=== PATIENT | male | born 1970 | race African-American/Black ===

== ENCOUNTER 2016-06-13 17:29 | Inpatient (IN) | payer SELFPAY ==
[~2016-06-13] VITALS: Ht 177.8 cm; Wt 67.6 kg
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
[2016-06-13] MEDS ORDERED: VANCOMYCIN 1GM IVPB FOR OMNI 250 ML IV ONE (18:15)
[2016-06-13] MEDS ORDERED: MORPHINE SULFATE 10 MG/ML VIAL. IV ONE ×2 (18:15→20:00)
[2016-06-13] MEDS ORDERED: IV NORMAL SALINE 500ML BAG 500 ML IV ONE (18:15)
[2016-06-13] MEDS ORDERED: DIPHTH,PERTUSS(ACELL),TET TOX 0.5 ML DISP.SYRIN. VAX IM ONE (18:30)
[2016-06-13 18:38] LABS: BASO % 0 % (0-3); EOS % 1 % (0-3); HEMATOCRIT 41.5 % (39.0-53.0); LYMPH # 1.7 x10^3/uL (1.0-4.8); LYMPH % 26 % (24-48); MEAN CORPUSCULAR HEMOGLOBIN 28 pg (25-35); MEAN CORPUSCULAR HGB CONC 34 g/dL (31-37); MEAN CORPUSCULAR VOLUME 84 fL (79-100); MONO % 8 % (0-9); NEUT % 65 % (31-73); PLATELET COUNT 231 x10^3/uL (140-400); RED BLOOD COUNT 4.94 x10^6/uL (4.30-5.70); RED CELL DISTRIBUTION WIDTH 12.5 % (11.5-14.5); WHITE BLOOD COUNT 6.6 x10^3/uL (4.0-11.0)
[2016-06-13 18:53] LABS: CALCIUM 9.7 mg/dL (8.5-10.1); CREATININE 1.2 mg/dL (0.7-1.3); GFR 65.8
[2016-06-13 19:04] LABS: ALBUMIN 3.6 g/dL (3.4-5.0); ALBUMIN/GLOBULIN RATIO 0.7 (1.0-1.7); TOTAL BILIRUBIN 0.4 mg/dL (0.2-1.0); TOTAL PROTEIN 8.7 g/dL (6.4-8.2)
[2016-06-13] MEDS ORDERED: MORPHINE SULFATE 4 MG/ML DISP.SYRIN. IV PRN (20:00)
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
[2016-06-13] MEDS ORDERED: ACETAMINOPHEN 325 MG TABLET. PO PRN (20:30)
[2016-06-13] MEDS ORDERED: HYDROMORPHONE 2 MG/ML VIAL. IV PRN (20:30)
[2016-06-13] MEDS ORDERED: ONDANSETRON PF 4 MG/2 ML VIAL. IV PRN (20:30)
[2016-06-13] MEDS: VANCOMYCIN PER PHARMACY MC PRN (20:46)
[2016-06-13 21:15] VITALS: BP 127/79
[2016-06-13 23:00] VITALS: BP 134/75
[2016-06-14 03:00] VITALS: BP 99/71
[2016-06-14] MEDS: IV NORMAL SALINE 1000ML BAG 1,000 ML IV SCH ×2 (04:30→05:49)
[2016-06-14 05:10] LABS: BASO % 1 % (0-3); EOS % 3 % (0-3); HEMOGLOBIN 13.8 g/dL (13.0-17.5); LYMPH # 2.1 x10^3/uL (1.0-4.8); LYMPH % 32 % (24-48); MEAN CORPUSCULAR HEMOGLOBIN 28 pg (25-35); MEAN CORPUSCULAR HGB CONC 34 g/dL (31-37); MEAN CORPUSCULAR VOLUME 84 fL (79-100); MONO % 8 % (0-9); NEUT % 57 % (31-73); PLATELET COUNT 243 x10^3/uL (140-400); RED BLOOD COUNT 4.86 x10^6/uL (4.30-5.70); RED CELL DISTRIBUTION WIDTH 12.4 % (11.5-14.5); WHITE BLOOD COUNT 6.5 x10^3/uL (4.0-11.0)
[2016-06-14 05:33] LABS: CALCIUM 9.4 mg/dL (8.5-10.1); CREATININE 1.1 mg/dL (0.7-1.3); POTASSIUM 4.7 mmol/L (3.5-5.1)
[2016-06-14] MEDS: VANCOMYCIN 1 GM in IV NORMAL SALINE 250ML 250 ML IV SCH ×2 (05:49→20:15)
[2016-06-14 07:00] VITALS: BP 111/81
--- NOTE | 2016-06-14 08:07 | RAD ---
Right thumb, 3 views, 06/13/2016: History: Thumb infection No fracture or destructive bony lesion is seen. There is minimal spurring at the IP and MCP joints. Incidental note is made of a radiopaque foreign body in the index finger. IMPRESSION: No acute bony abnormality is detected.
[2016-06-14 11:28] VITALS: BP 108/70
[2016-06-14] MEDS ORDERED: HYDROMORPHONE 2 MG/ML VIAL. IV PRN ×2 (13:00→16:45)
[2016-06-14] MEDS ORDERED: KETOROLAC TROMETHAMINE 30 MG/ML SYRINGE. IV ONE ×2 (13:00→13:30)
[2016-06-14] MEDS ORDERED: IV NORMAL SALINE 1000ML BAG 1,000 ML IV SCH (13:17)
--- NOTE | 2016-06-14 13:22 | PDOC ---
PROGRESS NOTES Chief Complaint Chief Complaint 1. right thumb cellulitis w/ tenosynovitis 2. possible bed bug infection 3. Puritis, 4. marked pain, 02/01 plan: History of Present Illness History of Present Illness cont NPO iV fluid toradol, IV mrophine, ortho added IV dilaudid surg today 5pm Vitals Vitals Vital Signs Date Time Temp Pulse Resp B/P Pulse Ox O2 Delivery O2 Flow Rate FiO2 06/14/16 11:28 97.5 78 108/70 97 Room Air 97.5 06/14/16 07:00 20 Physical Exam General: Alert, Cooperative, severe distress Heart: Regular rate, Normal S2 Lungs: Wheezing Extremities: No cyanosis Skin: No rashes Labs LABS Laboratory Tests Test 06/13/16 18:30 06/14/16 04:35 White Blood Count 6.6x10^3/uL (4.0-11.0) 6.5x10^3/uL (4.0-11.0) Red Blood Count 4.94x10^6/uL (4.30-5.70) 4.86x10^6/uL (4.30-5.70) Hemoglobin 14.0g/dL (13.0-17.5) 13.8g/dL (13.0-17.5) Hematocrit 41.5% (39.0-53.0) 41.0% (39.0-53.0) Mean Corpuscular Volume 84fL (79-100) 84fL (79-100) Mean Corpuscular Hemoglobin 28pg (25-35) 28pg (25-35) Mean Corpuscular Hemoglobin Concent 34g/dL (31-37) 34g/dL (31-37) Red Cell Distribution Width 12.5% (11.5-14.5) 12.4% (11.5-14.5) Platelet Count 231x10^3/uL (140-400) 243x10^3/uL (140-400) Neutrophils (%) (Auto) 65% (31-73) 57% (31-73) Lymphocytes (%) (Auto) 26% (24-48) 32% (24-48) Monocytes (%) (Auto) 8% (0-9) 8% (0-9) Eosinophils (%) (Auto) 1% (0-3) 3% (0-3) Basophils (%) (Auto) 0% (0-3) 1% (0-3) Neutrophils # (Auto) 4.3x10^3uL (1.8-7.7) 3.7x10^3uL (1.8-7.7) Lymphocytes # (Auto) 1.7x10^3/uL (1.0-4.8) 2.1x10^3/uL (1.0-4.8) Monocytes # (Auto) 0.5x10^3/uL (0.0-1.1) 0.5x10^3/uL (0.0-1.1) Eosinophils # (Auto) 0.1x10^3/uL (0.0-0.7) 0.2x10^3/uL (0.0-0.7) Basophils # (Auto) 0.0x10^3/uL (0.0-0.2) 0.0x10^3/uL (0.0-0.2) Sodium Level 140mmol/L (136-145) 141mmol/L (136-145) Potassium Level 4.0mmol/L (3.5-5.1) 4.7mmol/L (3.5-5.1) Chloride Level 102mmol/L (98-107) 104mmol/L (98-107) Carbon Dioxide Level 29mmol/L (21-32) 27mmol/L (21-32) Anion Gap 9 (6-14) 10 (6-14) Blood Urea Nitrogen 14mg/dL (8-26) 16mg/dL (8-26) Creatinine 1.2mg/dL (0.7-1.3) 1.1mg/dL (0.7-1.3) Estimated GFR (Cockcroft-Gault) 65.8 88.0 BUN/Creatinine Ratio 12 (6-20) Glucose Level 135mg/dL (70-99) 92mg/dL (70-99) Calcium Level 9.7mg/dL (8.5-10.1) 9.4mg/dL (8.5-10.1) Total Bilirubin 0.4mg/dL (0.2-1.0) Aspartate Amino Transf (AST/SGOT) 23U/L (15-37) Alanine Aminotransferase (ALT/SGPT) 23U/L (16-63) Alkaline Phosphatase 104U/L (46-116) Total Protein 8.7g/dL (6.4-8.2) Albumin 3.6g/dL (3.4-5.0) Albumin/Globulin Ratio 0.7 (1.0-1.7) Assessment and Plan Assessmemt and Plan Problems Medical Problems: (1) Felon of finger Status: Acute (2) Tenosynovitis Status: Acute Problems: Comment Review of Relevant I have reviewed the following items steven (where applicable) has been applied. Labs Laboratory Tests Test 06/13/16 18:30 06/14/16 04:35 White Blood Count 6.6x10^3/uL (4.0-11.0) 6.5x10^3/uL (4.0-11.0) Red Blood Count 4.94x10^6/uL (4.30-5.70) 4.86x10^6/uL (4.30-5.70) Hemoglobin 14.0g/dL (13.0-17.5) 13.8g/dL (13.0-17.5) Hematocrit 41.5% (39.0-53.0) 41.0% (39.0-53.0) Mean Corpuscular Volume 84fL (79-100) 84fL (79-100) Mean Corpuscular Hemoglobin 28pg (25-35) 28pg (25-35) Mean Corpuscular Hemoglobin Concent 34g/dL (31-37) 34g/dL (31-37) Red Cell Distribution Width 12.5% (11.5-14.5) 12.4% (11.5-14.5) Platelet Count 231x10^3/uL (140-400) 243x10^3/uL (140-400) Neutrophils (%) (Auto) 65% (31-73) 57% (31-73) Lymphocytes (%) (Auto) 26% (24-48) 32% (24-48) Monocytes (%) (Auto) 8% (0-9) 8% (0-9) Eosinophils (%) (Auto) 1% (0-3) 3% (0-3) Basophils (%) (Auto) 0% (0-3) 1% (0-3) Neutrophils # (Auto) 4.3x10^3uL (1.8-7.7) 3.7x10^3uL (1.8-7.7) Lymphocytes # (Auto) 1.7x10^3/uL (1.0-4.8) 2.1x10^3/uL (1.0-4.8) Monocytes # (Auto) 0.5x10^3/uL (0.0-1.1) 0.5x10^3/uL (0.0-1.1) Eosinophils # (Auto) 0.1x10^3/uL (0.0-0.7) 0.2x10^3/uL (0.0-0.7) Basophils # (Auto) 0.0x10^3/uL (0.0-0.2) 0.0x10^3/uL (0.0-0.2) Sodium Level 140mmol/L (136-145) 141mmol/L (136-145) Potassium Level 4.0mmol/L (3.5-5.1) 4.7mmol/L (3.5-5.1) Chloride Level 102mmol/L (98-107) 104mmol/L (98-107) Carbon Dioxide Level 29mmol/L (21-32) 27mmol/L (21-32) Anion Gap 9 (6-14) 10 (6-14) Blood Urea Nitrogen 14mg/dL (8-26) 16mg/dL (8-26) Creatinine 1.2mg/dL (0.7-1.3) 1.1mg/dL (0.7-1.3) Estimated GFR (Cockcroft-Gault) 65.8 88.0 BUN/Creatinine Ratio 12 (6-20) Glucose Level 135mg/dL (70-99) 92mg/dL (70-99) Calcium Level 9.7mg/dL (8.5-10.1) 9.4mg/dL (8.5-10.1) Total Bilirubin 0.4mg/dL (0.2-1.0) Aspartate Amino Transf (AST/SGOT) 23U/L (15-37) Alanine Aminotransferase (ALT/SGPT) 23U/L (16-63) Alkaline Phosphatase 104U/L (46-116) Total Protein 8.7g/dL (6.4-8.2) Albumin 3.6g/dL (3.4-5.0) Albumin/Globulin Ratio 0.7 (1.0-1.7) Laboratory Tests Test 06/13/16 18:30 06/14/16 04:35 White Blood Count 6.6x10^3/uL (4.0-11.0) 6.5x10^3/uL (4.0-11.0) Red Blood Count 4.94x10^6/uL (4.30-5.70) 4.86x10^6/uL (4.30-5.70) Hemoglobin 14.0g/dL (13.0-17.5) 13.8g/dL (13.0-17.5) Hematocrit 41.5% (39.0-53.0) 41.0% (39.0-53.0) Mean Corpuscular Volume 84fL (79-100) 84fL (79-100) Mean Corpuscular Hemoglobin 28pg (25-35) 28pg (25-35) Mean Corpuscular Hemoglobin Concent 34g/dL (31-37) 34g/dL (31-37) Red Cell Distribution Width 12.5% (11.5-14.5) 12.4% (11.5-14.5) Platelet Count 231x10^3/uL (140-400) 243x10^3/uL (140-400) Neutrophils (%) (Auto) 65% (31-73) 57% (31-73) Lymphocytes (%) (Auto) 26% (24-48) 32% (24-48) Monocytes (%) (Auto) 8% (0-9) 8% (0-9) Eosinophils (%) (Auto) 1% (0-3) 3% (0-3) Basophils (%) (Auto) 0% (0-3) 1% (0-3) Neutrophils # (Auto) 4.3x10^3uL (1.8-7.7) 3.7x10^3uL (1.8-7.7) Lymphocytes # (Auto) 1.7x10^3/uL (1.0-4.8) 2.1x10^3/uL (1.0-4.8) Monocytes # (Auto) 0.5x10^3/uL (0.0-1.1) 0.5x10^3/uL (0.0-1.1) Eosinophils # (Auto) 0.1x10^3/uL (0.0-0.7) 0.2x10^3/uL (0.0-0.7) Basophils # (Auto) 0.0x10^3/uL (0.0-0.2) 0.0x10^3/uL (0.0-0.2) Sodium Level 140mmol/L (136-145) 141mmol/L (136-145) Potassium Level 4.0mmol/L (3.5-5.1) 4.7mmol/L (3.5-5.1) Chloride Level 102mmol/L (98-107) 104mmol/L (98-107) Carbon Dioxide Level 29mmol/L (21-32) 27mmol/L (21-32) Anion Gap 9 (6-14) 10 (6-14) Blood Urea Nitrogen 14mg/dL (8-26) 16mg/dL (8-26) Creatinine 1.2mg/dL (0.7-1.3) 1.1mg/dL (0.7-1.3) Estimated GFR (Cockcroft-Gault) 65.8 88.0 BUN/Creatinine Ratio 12 (6-20) Glucose Level 135mg/dL (70-99) 92mg/dL (70-99) Calcium Level 9.7mg/dL (8.5-10.1) 9.4mg/dL (8.5-10.1) Total Bilirubin 0.4mg/dL (0.2-1.0) Aspartate Amino Transf (AST/SGOT) 23U/L (15-37) Alanine Aminotransferase (ALT/SGPT) 23U/L (16-63) Alkaline Phosphatase 104U/L (46-116) Total Protein 8.7g/dL (6.4-8.2) Albumin 3.6g/dL (3.4-5.0) Albumin/Globulin Ratio 0.7 (1.0-1.7) Medications Current Medications Morphine Sulfate 5 mg 5 mg 1X ONCE IV Last administered on 06/13/16 18:34; Start 06/13/16 at 18:15; Stop 06/13/16 at 18:16; Status DC Sodium Chloride 500 ml @ 500 mls/hr 1X ONCE IV Last administered on 18:33; Start 06/13/16 at 18:15; Stop 06/13/16 at 19:14; Status DC Vancomycin HCl 250 ml @ 250 mls/hr 1X ONCE IV Last administered on 06/13/16 18:38; Start 06/13/16 at 18:15; Stop 06/13/16 at 19:14; Status DC Diphtheria/ Tetanus/Acell Pertussis (Boostrix) 0.5 ml ONCE ONCE VAX IM Last administered on 06/13/16 18:48; Start 06/13/16 at 18:30; Stop 06/13/16 at 18:31 ; Status DC Morphine Sulfate 5 mg 1X ONCE IV Last administered on 06/13/16 20:05; Start 06/13/16 at 20:00; Stop 06/13/16 at 20:01; Status DC Morphine Sulfate 4 mg 4 mg PRN Q4HRS PRN IV PAIN; Start 06/13/16 at 20:00; Stop 06/14/16 at 19:59 Sodium Chloride (Iv Sodium Chloride 0.9% 1000ml Bag) 1,000 ml @ 125 mls/hr Q8H IV Last administered on 06/14/16 05:49; Start 06/13/16 at 20:30; Stop at 13:18; Status DC Vancomycin HCl (Vanco Per Pharmacy) 1 each PRN DAILY PRN MC SEE COMMENTS Last administered on 06/13/16 20:46; Start 06/13/16 at 20:00 Hydromorphone HCl (Dilaudid) 2 mg PRN Q4HRS PRN IV PAIN; Start 06/13/16 at 20: 30; Stop 06/14/16 at 12:55; Status DC Oxycodone/ Acetaminophen (Percocet 10/325) 1 tab PRN Q4HRS PRN PO PAIN; Start 06/13/16 at 20:30 Acetaminophen (Tylenol) 650 mg PRN Q6HRS PRN PO FEVER; Start 06/13/16 at 20:30 Ondansetron HCl 4 mg 4 mg PRN Q6HRS PRN IV NAUSEA/VOMITING; Start 06/13/16 at 20:30 Vancomycin HCl/ Sodium Chloride (Iv Sodium Chloride 0.9% 250ml) 250 ml @ 250 mls/hr Q12H IV Last administered on 06/14/16t 05:49; Start 06/14/16 at 06:00 Vancomycin HCl 1 each 1X ONCE MC ; Start 06/15/16 at 05:30; Stop 06/15/16 at 05 :31 Hydromorphone HCl (Dilaudid) 2 mg PRN Q1HR PRN IV PAIN; Start 06/14/16 at 13:00 Ketorolac Tromethamine 30 mg 30 mg 1X ONCE IV ; Start 06/14/16 at 13:00; Stop 06/14/16 at 13:01; Status DC Sodium Chloride (Iv Sodium Chloride 0.9% 1000ml Bag) 1,000 ml @ 150 mls/hr Q6H40M IV ; Start 06/14/16 at 13:17; Stop 06/14/16 at 13:16; Status UNV Ketorolac Tromethamine (Toradol) 30 mg 1X ONCE IV ; Start 06/14/16 at 13:30; Stop 06/14/16 at 13:31; Status UNV Diphenhydramine HCl (Benadryl) 50 mg 1X ONCE IVP ; Start 06/14/16 at 13:30; Stop 06/14/16 at 13:31; Status UNV Active Scripts Active Reported No Known Medications Prior To Admisstion (Info) Each 1 Each Vitals/I & O Vital Sign - Last 24 Hours 06/13/16 06/13/16 06/13/16 06/13/16 17:49 18:06 18:27 18:34 Temp 98.3 98.3 Pulse 95 107 103 Resp 16 B/P 124/80 143/76 Pulse Ox 95 O2 Delivery Room Air Room Air 06/13/16 06/13/16 06/13/16 06/13/16 18:57 20:01 20:05 21:15 Temp 97.7 97.7 Pulse 94 99 92 Resp 21 22 B/P 136/88 142/86 127/79 Pulse Ox 97 99 O2 Delivery Room Air Room Air 06/13/16 06/14/16 06/14/16 06/14/16 23:00 03:00 07:00 11:28 Temp 98.2 98.4 98.8 97.5 98.2 98.4 98.8 97.5 Pulse 103 84 99 78 Resp 22 22 20 B/P 134/75 99/71 111/81 108/70 Pulse Ox 96 98 96 97 O2 Delivery Room Air Room Air Room Air Room Air Intake and Output 06/13/16 06/13/16 06/14/16 15:00 23:00 07:00 Intake Total 750 ml 600 ml Balance 750 ml 600 ml GUCCI ISAAC MD Jun 14, 2016 13:21
[2016-06-14] MEDS ORDERED: DIPHENHYDRAMINE 50 MG/ML VIAL IVP ONE (13:30)
[2016-06-14 15:16] VITALS: BP 110/76
[2016-06-14] MEDS ORDERED: LIDOCAINE 1% 1 ML SYRINGE. ID PRN (16:45)
[2016-06-14] MEDS ORDERED: PROCHLORPERAZINE 10 MG/2 ML VIAL. IV PRN (16:45)
[2016-06-14] MEDS ORDERED: FENTANYL PF 100 MCG/2 ML VIAL. IV PRN ×3 (16:45→18:15)
[2016-06-14] MEDS ORDERED: ONDANSETRON PF 4 MG/2 ML VIAL. IV PRN ×2 (16:45→18:15)
[2016-06-14] MEDS ORDERED: MORPHINE SULFATE 2 MG/ML DISP.SYRIN. IV PRN ×2 (16:45→18:15)
[2016-06-14] MEDS ORDERED: LIDOCAINE 2% 100 MG/5 ML DISP.SYRIN. ONE (17:01)
[2016-06-14] MEDS ORDERED: DESFLURANE 16 TO 30 MINUTES. IH ONE (17:01)
[2016-06-14] MEDS ORDERED: DEXAMETHASONE SOD PHOS 20 MG/5 ML VIAL. ONE (17:01)
[2016-06-14] MEDS ORDERED: PROPOFOL 20 ML IV ONE (17:01)
[2016-06-14] MEDS ORDERED: FENTANYL PF 100 MCG/2 ML VIAL. ONE (17:01)
[2016-06-14] MEDS ORDERED: ONDANSETRON PF 4 MG/2 ML VIAL. ONE (17:01)
[2016-06-14] MEDS: IV RINGERS,LACTATED 1000ML 1,000 ML IV SCH ×2 (17:21→18:39)
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
[2016-06-14] MEDS ORDERED: BUPIVACAINE-EPI 0.25%-1:200000 MPF 30 ML VIAL. INJ ONE (17:48)
[2016-06-14] MEDS ORDERED: BUPIVACAINE-EPI 0.25%-1:200000 MPF 30 ML VIAL. ONE (17:57)
[2016-06-14] MEDS ORDERED: OXYCODONE IR 5 MG TABLET. PO PRN (18:15)
[2016-06-14] MEDS ORDERED: HYDROCODONE/APAP 7.5/325MG TABLET. PO PRN ×2 (18:15)
[2016-06-14] MEDS ORDERED: MORPHINE SULFATE 4 MG/ML DISP.SYRIN. IV PRN (18:15)
[2016-06-14] MEDS ORDERED: DEXTROSE 50% 25 GM / 50ML DISP.SYRIN. IV PRN (18:15)
--- NOTE | 2016-06-14 18:17 | PDOC4 ---
Operative Note Operative Note Date of Procedure: June 14, 2016 Pre-Op Diagnosis: felon abscess right thumb Post-Op Diagnosis: felon abscess right thumb Procedure: Drainage of finger abscess; complicated, liza, CPT 34906 Surgeon: Cabrera Alfaro MD Bow Tacker: Marisol Luciano PA-C Anesthesia: General EBL: 5 mL Specimens Obtained: Cultures aerobic and anaerobic Complications: none Drains: Iodoform packing Tourniquet time: 3 minutes Indications for Procedure: The patient is a 45-year-old man with a felon abscess of the right thumb. I recommended surgical incision and drainage. We discussed the potential risks of scarring, loss of protective sensation, loss of tissue of the digit, need for further surgeries, or other potential surgical or anesthetic complication. All of the patients questions were answered and they desired to proceed. A written consent was obtained. Procedure in Detail: The patient was identified in the preoperative holding area. The correct right thumb was marked by me. The patient was taken to the operating room where general anesthesia was used. The patient was positioned supine on the operating table. The patient remains on scheduled doses of antibiotics, so no additional dosing was given. A tourniquet was placed on the arm. A timeout procedure was performed. The limb was prepped in sterile fashion. Sterile drapes were applied. The limb was elevated to exsanguinate it. The tourniquet was inflated to 275 mmHg. An incision was made along the radial border of the right thumb. Purulent drainage was noted. Cultures were taken. Care was made to extend the incision across the palmar aspect of the digit, completely releasing the septations and the entire felon abscess. There is no apparent extension into flexor tenosynovitis. Rongeurs was used to remove the necrotic tissue of the subcutaneous fat of the tip of the digit. Copious irrigation was used. The tourniquet was released. Electrocautery was used carefully for hemostasis to avoid neurovascular injury. The incision was loosely closed with simple interrupted nonabsorbable suture. The tip of the digit was left open with iodoform packing in the abscess cavity. Xeroform and tube gauze were applied. Needle and sponge counts were correct. There were no apparent complications. CABRERA ALFARO MD Jun 14, 2016 18:17
[2016-06-14 19:00] VITALS: BP 118/80
[2016-06-14] MEDS: VANCOMYCIN PER PHARMACY MC PRN (21:00)
[2016-06-14] MEDS: CEFAZOLIN SODIUM 1 GM in IV NORMAL SALINE 50ML 50 ML IV SCH ×2 (21:30→23:53)
[2016-06-14] MEDS: OXYCODONE/APAP 10/325 TABLET. PO PRN (22:16)
[2016-06-14 23:00] VITALS: BP 113/70
[2016-06-15 03:00] VITALS: BP 122/76
[2016-06-15] MEDS: OXYCODONE/APAP 10/325 TABLET. PO PRN ×5 (03:25→20:54)
[2016-06-15 04:44] LABS: BARBITURATES NEG (NEG); BENZODIAZEPINES NEG (NEG); CANNABINOIDS NEG (NEG); COCAINE POS (NEG); METHADONE NEG (NEG); OPIATES POS (NEG); PHENCYCLIDINE NEG (NEG)
[2016-06-15 04:57] LABS: ETHANOL, URINE NEG (NEG)
[2016-06-15] MEDS: CEFAZOLIN SODIUM 1 GM in IV NORMAL SALINE 50ML 50 ML IV SCH (05:37)
[2016-06-15] MEDS ORDERED: MAGNESIUM HYDROXIDE 2,400 MG/30 ML ORAL.SUSP. PO PRN (06:00)
[2016-06-15] MEDS: VANCOMYCIN 1 GM in IV NORMAL SALINE 250ML 250 ML IV SCH ×3 (06:17→19:48)
[2016-06-15 07:00] VITALS: BP 117/69
[2016-06-15] MEDS: POLYETHYLENE GLYCOL 3350 17 GM PACKET. PO PRN (08:02)
[2016-06-15] MEDS: SENNOSIDES/DOCUSATE 8.6/50MG TABLET. PO SCH (08:02)
[2016-06-15 11:00] VITALS: BP 106/65
[2016-06-15] MEDS ORDERED: LIDOCAINE (700MG/PATCH) PATCH. TD SCH (13:00)
--- NOTE | 2016-06-15 14:52 | PDOC ---
PROGRESS NOTES Chief Complaint Chief Complaint 1. right thumb cellulitis w/ tenosynovitis 2. possible bed bug infection 3. Puritis, 4. marked pain, 02/01 plan: History of Present Illness History of Present Illness s/p surg finger pain better now puritis and back pain cont IV abx PO intake up ad randee consult Physiatry plan DC soon toradol, IV mrophine, Vitals Vitals Vital Signs Date Time Temp Pulse Resp B/P Pulse Ox O2 Delivery O2 Flow Rate FiO2 06/15/16 12:24 Room Air 06/15/16 11:00 97.9 78 18 106/65 96 97.9 06/14/16 18:25 8 Physical Exam General: Alert, Cooperative, mild distress Heart: Regular rate (at times tachycardic. He reports pain in the thumb.), No murmurs Lungs: Wheezing Abdomen: Soft, No tenderness Extremities: No edema, Other (he has a small puncture wound on the radial side of the thumb. There is a felon abscess with tense swelling of the distal end of the thumb. Sensation is absent at the thumb tip. He does not seem particularly tender along the flexor tendon sheath, and does not have a sausage digit swelling nor loss of interphalangeal joint motion that I would expect with flexor tenosynovitis.) Skin: Other (puncture wound on the thumb. Purulent discoloration of the thumb tip.) Labs LABS Laboratory Tests Test 06/15/16 02:00 Urine Opiates Screen Pos (NEG) Urine Methadone Screen Neg (NEG) Urine Barbiturates Neg (NEG) Urine Phencyclidine Screen Neg (NEG) Urine Amphetamine/Methamphetamine Neg (NEG) Urine Benzodiazepines Screen Neg (NEG) Urine Cocaine Screen Pos (NEG) Urine Cannabinoids Screen Neg (NEG) Urine Ethyl Alcohol Neg (NEG) Review of Systems Review of Systems back pain puritis no n/v d Assessment and Plan Assessmemt and Plan Problems Medical Problems: (1) Felon of finger Status: Acute (2) Tenosynovitis Status: Acute Problems: Comment Review of Relevant I have reviewed the following items steven (where applicable) has been applied. Labs Laboratory Tests Test 06/13/16 18:30 06/14/16 04:35 06/15/16 02:00 White Blood Count 6.6x10^3/uL (4.0-11.0) 6.5x10^3/uL (4.0-11.0) Red Blood Count 4.94x10^6/uL (4.30-5.70) 4.86x10^6/uL (4.30-5.70) Hemoglobin 14.0g/dL (13.0-17.5) 13.8g/dL (13.0-17.5) Hematocrit 41.5% (39.0-53.0) 41.0% (39.0-53.0) Mean Corpuscular Volume 84fL (79-100) 84fL (79-100) Mean Corpuscular Hemoglobin 28pg (25-35) 28pg (25-35) Mean Corpuscular Hemoglobin Concent 34g/dL (31-37) 34g/dL (31-37) Red Cell Distribution Width 12.5% (11.5-14.5) 12.4% (11.5-14.5) Platelet Count 231x10^3/uL (140-400) 243x10^3/uL (140-400) Neutrophils (%) (Auto) 65% (31-73) 57% (31-73) Lymphocytes (%) (Auto) 26% (24-48) 32% (24-48) Monocytes (%) (Auto) 8% (0-9) 8% (0-9) Eosinophils (%) (Auto) 1% (0-3) 3% (0-3) Basophils (%) (Auto) 0% (0-3) 1% (0-3) Neutrophils # (Auto) 4.3x10^3uL (1.8-7.7) 3.7x10^3uL (1.8-7.7) Lymphocytes # (Auto) 1.7x10^3/uL (1.0-4.8) 2.1x10^3/uL (1.0-4.8) Monocytes # (Auto) 0.5x10^3/uL (0.0-1.1) 0.5x10^3/uL (0.0-1.1) Eosinophils # (Auto) 0.1x10^3/uL (0.0-0.7) 0.2x10^3/uL (0.0-0.7) Basophils # (Auto) 0.0x10^3/uL (0.0-0.2) 0.0x10^3/uL (0.0-0.2) Sodium Level 140mmol/L (136-145) 141mmol/L (136-145) Potassium Level 4.0mmol/L (3.5-5.1) 4.7mmol/L (3.5-5.1) Chloride Level 102mmol/L (98-107) 104mmol/L (98-107) Carbon Dioxide Level 29mmol/L (21-32) 27mmol/L (21-32) Anion Gap 9 (6-14) 10 (6-14) Blood Urea Nitrogen 14mg/dL (8-26) 16mg/dL (8-26) Creatinine 1.2mg/dL (0.7-1.3) 1.1mg/dL (0.7-1.3) Estimated GFR (Cockcroft-Gault) 65.8 88.0 BUN/Creatinine Ratio 12 (6-20) Glucose Level 135mg/dL (70-99) 92mg/dL (70-99) Calcium Level 9.7mg/dL (8.5-10.1) 9.4mg/dL (8.5-10.1) Total Bilirubin 0.4mg/dL (0.2-1.0) Aspartate Amino Transf (AST/SGOT) 23U/L (15-37) Alanine Aminotransferase (ALT/SGPT) 23U/L (16-63) Alkaline Phosphatase 104U/L (46-116) Total Protein 8.7g/dL (6.4-8.2) Albumin 3.6g/dL (3.4-5.0) Albumin/Globulin Ratio 0.7 (1.0-1.7) Urine Opiates Screen Pos (NEG) Urine Methadone Screen Neg (NEG) Urine Barbiturates Neg (NEG) Urine Phencyclidine Screen Neg (NEG) Urine Amphetamine/Methamphetamine Neg (NEG) Urine Benzodiazepines Screen Neg (NEG) Urine Cocaine Screen Pos (NEG) Urine Cannabinoids Screen Neg (NEG) Urine Ethyl Alcohol Neg (NEG) Laboratory Tests Test 06/15/16 02:00 Urine Opiates Screen Pos (NEG) Urine Methadone Screen Neg (NEG) Urine Barbiturates Neg (NEG) Urine Phencyclidine Screen Neg (NEG) Urine Amphetamine/Methamphetamine Neg (NEG) Urine Benzodiazepines Screen Neg (NEG) Urine Cocaine Screen Pos (NEG) Urine Cannabinoids Screen Neg (NEG) Urine Ethyl Alcohol Neg (NEG) Microbiology 06/14/16 Gram Stain - Final, Complete Medications Current Medications Morphine Sulfate 5 mg 5 mg 1X ONCE IV Last administered on 06/13/16 18:34; Start 06/13/16 at 18:15; Stop 06/13/16 at 18:16; Status DC Sodium Chloride 500 ml @ 500 mls/hr 1X ONCE IV Last administered on 18:33; Start 06/13/16 at 18:15; Stop 06/13/16 at 19:14; Status DC Vancomycin HCl 250 ml @ 250 mls/hr 1X ONCE IV Last administered on 06/13/16 18:38; Start 06/13/16 at 18:15; Stop 06/13/16 at 19:14; Status DC Diphtheria/ Tetanus/Acell Pertussis (Boostrix) 0.5 ml ONCE ONCE VAX IM Last administered on 06/13/16 18:48; Start 06/13/16 at 18:30; Stop 06/13/16 at 18:31 ; Status DC Morphine Sulfate 5 mg 1X ONCE IV Last administered on 06/13/16 20:05; Start 06/13/16 at 20:00; Stop 06/13/16 at 20:01; Status DC Morphine Sulfate 4 mg 4 mg PRN Q4HRS PRN IV PAIN Last administered on 13:24; Start 06/13/16 at 20:00; Stop 06/14/16 at 19:59; Status DC Sodium Chloride (Iv Sodium Chloride 0.9% 1000ml Bag) 1,000 ml @ 125 mls/hr Q8H IV Last administered on 06/14/16 05:49; Start 06/13/16 at 20:30; Stop at 13:18; Status DC Vancomycin HCl (Vanco Per Pharmacy) 1 each PRN DAILY PRN MC SEE COMMENTS Last administered on 06/14/16 21:00; Start 06/13/16 at 20:00 Hydromorphone HCl (Dilaudid) 2 mg PRN Q4HRS PRN IV PAIN; Start 06/13/16 at 20: 30; Stop 06/14/16 at 12:55; Status DC Oxycodone/ Acetaminophen (Percocet 10/325) 1 tab PRN Q4HRS PRN PO PAIN Last administered on 06/15/16 12:24; Start 06/13/16 at 20:30 Acetaminophen (Tylenol) 650 mg PRN Q6HRS PRN PO FEVER; Start 06/13/16 at 20:30 Ondansetron HCl 4 mg 4 mg PRN Q6HRS PRN IV NAUSEA/VOMITING Last administered on 06/14/16 13:23; Start 06/13/16 at 20:30 Vancomycin HCl/ Sodium Chloride (Iv Sodium Chloride 0.9% 250ml) 250 ml @ 250 mls/hr Q12H IV Last administered on 06/15/16 06:17; Start 06/14/16 at 06:00 Vancomycin HCl 1 each 1X ONCE MC ; Start 06/15/16 at 17:30; Stop 06/15/16 at 17 :31 Hydromorphone HCl (Dilaudid) 2 mg PRN Q1HR PRN IV PAIN; Start 06/14/16 at 13:00 Ketorolac Tromethamine 30 mg 30 mg 1X ONCE IV Last administered on 06/14/16 13:23; Start 06/14/16 at 13:00; Stop 06/14/16 at 13:01; Status DC Sodium Chloride (Iv Sodium Chloride 0.9% 1000ml Bag) 1,000 ml @ 150 mls/hr Q6H40M IV ; Start 06/14/16 at 13:17; Stop 06/14/16 at 13:23; Status DC Ketorolac Tromethamine (Toradol) 30 mg 1X ONCE IV ; Start 06/14/16 at 13:30; Stop 06/14/16 at 13:31; Status DC Diphenhydramine HCl (Benadryl) 50 mg 1X ONCE IVP Last administered on 13:54; Start 06/14/16 at 13:30; Stop 06/14/16 at 13:31; Status DC Ondansetron HCl (Zofran) 4 mg PRN Q6HRS PRN IV Nausea; Start 06/14/16 at 16:45 ; Stop 06/15/16 at 16:44 Fentanyl Citrate (Fentanyl 2ml Vial) 25 mcg PRN Q5MIN PRN IV MILD PAIN Last administered on 06/14/16 18:40; Start 06/14/16 at 16:45; Stop 06/15/16 at 16:44 Fentanyl Citrate (Fentanyl 2ml Vial) 50 mcg PRN Q5MIN PRN IV MODERATE PAIN; Start 06/14/16 at 16:45; Stop 06/15/16 at 16:44 Morphine Sulfate 1 mg 1 mg PRN Q10MIN PRN IV SEVERE PAIN; Start 06/14/16 at 16: 45; Stop 06/15/16 at 16:44 Lactated Ringer's (Iv Lactated Ringers) 1,000 ml @ 0 mls/hr Q0M IV Last administered on 06/14/16 18:39; Start 06/14/16 at 16:41; Stop 06/15/16 at 04:40 ; Status DC Lidocaine HCl 2 ml 1X PRN PRN ID IV START; Start 06/14/16 at 16:45; Stop at 16:44 Hydromorphone HCl (Dilaudid) 0.5 mg PRN Q10MIN PRN IV SEV PAIN,Second choice; Start 06/14/16 at 16:45; Stop 06/15/16 at 16:44 Prochlorperazine Edisylate (Compazine) 5 mg PACU PRN PRN IV NAUSEA; Start 06/14 at 16:45; Stop 06/15/16 at 16:44 Oxycodone HCl (Roxicodone) 5 mg PRN Q3HRS PRN PO PAIN; Start 06/14/16 at 18:15 Morphine Sulfate 2 mg PRN Q1HR PRN IV PAIN Last administered on 06/15/16 00:39 ; Start 06/14/16 at 18:15 Fentanyl Citrate (Fentanyl 2ml Vial) 25 mcg PRN Q1HR PRN IV PAIN; Start at 18:15 Senna/Docusate Sodium (Senna Plus) 1 tab DAILY PO Last administered on 08:02; Start 06/15/16 at 09:00 Polyethylene Glycol (miraLAX PACKET) 17 gm PRN DAILY PRN PO CONSTIPATION Last administered on 06/15/16 08:02; Start 06/14/16 at 18:15 Ondansetron HCl (Zofran) 4 mg PRN Q4HRS PRN IV NAUSEA/VOMITING; Start 06/14/16 at 18:15 Magnesium Hydroxide (Milk Of Magnesia) 2,400 mg 1X PRN PRN PO CONSTIPATION; Start 06/15/16 at 06:00; Stop 06/16/16 at 05:59 Bisacodyl (Dulcolax Supp) 10 mg 1X PRN PRN [place] CONSTIPATION; Start 06/15/16 at 16:00; Stop 06/16/16 at 15:59 Acetaminophen/ Hydrocodone Bitart (Lortab 7.5/325) 1 tab PRN Q4HRS PRN PO PAIN ; Start 06/14/16 at 18:15 Morphine Sulfate 4 mg PRN Q2HR PRN IV PAIN; Start 06/14/16 at 18:15 Acetaminophen/ Hydrocodone Bitart (Lortab 7.5/325) 2 tab PRN Q4HRS PRN PO PAIN ; Start 06/14/16 at 18:15 Dextrose 12.5 gm 12.5 gm PRN Q15MIN PRN IV SEE COMMENTS; Start 06/14/16 at 18: 15 Cefazolin Sodium/ Sodium Chloride (Ancef/Iv Sodium Chloride 0.9% 50ml) 50 ml @ 100 mls/hr Q6H IV Last administered on 06/15/16 05:37; Start 06/14/16 at 18:30 ; Stop 06/15/16 at 06:59; Status DC Bupivacaine HCl/ Epinephrine Bitart (Sensorcaine-Epi 0.25%-1:678818 Mpf) 30 ml STK-MED ONCE INJ Last administered on 06/14/16 17:48; Start 06/14/16 at 17:48 ; Stop 06/14/16 at 18:26; Status DC Dexamethasone Sodium Phosphate (Decadron) 20 mg STK-MED ONCE .ROUTE ; Start at 17:01; Stop 06/15/16 at 09:58; Status DC Ondansetron HCl 4 mg 4 mg STK-MED ONCE .ROUTE ; Start 06/14/16 at 17:01; Stop at 09:58; Status DC Propofol (Diprivan) 20 ml @ As Directed STK-MED ONCE IV ; Start 06/14/16 at 17: 01; Stop 06/15/16 at 09:58; Status DC Lidocaine HCl 100 mg STK-MED ONCE .ROUTE ; Start 06/14/16 at 17:01; Stop at 09:58; Status DC Desflurane (Suprane) 15 ml STK-MED ONCE IH ; Start 06/14/16 at 17:01; Stop 06/15 at 09:58; Status DC Fentanyl Citrate (Fentanyl 2ml Vial) 100 mcg STK-MED ONCE .ROUTE ; Start at 17:01; Stop 06/15/16 at 09:58; Status DC Bupivacaine HCl/ Epinephrine Bitart (Sensorcaine-Epi 0.25%-1:928795 Mpf) 30 ml STK-MED ONCE .ROUTE ; Start 06/14/16 at 17:57; Stop 06/15/16 at 09:59; Status DC Lidocaine (Lidoderm) 1 patch DAILY TD ; Start 06/15/16 at 13:00 Diphenhydramine HCl (Benadryl) 50 mg PRN Q6HRS PRN PO ITCHING; Start 06/15/16 at 15:00; Status UNV Active Scripts Active Reported No Known Medications Prior To Admisstion (Info) Each 1 Each Vitals/I & O Vital Sign - Last 24 Hours 06/14/16 06/14/16 06/14/16 06/14/16 15:16 16:41 18:08 18:10 Temp 98.1 98 97.9 98.1 98.0 97.9 Pulse 84 69 60 Resp 16 18 16 B/P 110/76 101/63 105/61 Pulse Ox 97 97 99 O2 Delivery Room Air Room Air Mask Simple Mask O2 Flow Rate 8 8 06/14/16 06/14/16 06/14/16 06/14/16 18:25 18:35 18:40 18:40 Temp 97.9 97.9 97.9 97.9 Pulse 66 80 Resp 18 18 18 B/P 106/64 122/85 Pulse Ox 100 97 100 O2 Delivery Simple Mask Room Air Room Air Room Air O2 Flow Rate 8 06/14/16 06/14/16 06/14/16 06/14/16 18:55 19:00 19:10 19:25 Temp 98.6 97.1 98.6 98.6 98.6 97.1 98.6 98.6 Pulse 64 85 64 68 Resp 18 18 20 20 B/P 106/75 118/80 100/74 102/70 Pulse Ox 100 97 100 100 O2 Delivery Room Air Room Air Room Air Room Air 06/14/16 06/14/16 06/14/16 06/15/16 19:40 22:16 23:00 00:39 Temp 98.6 99.0 98.6 99.0 Pulse 70 87 Resp 18 16 16 16 B/P 105/74 113/70 Pulse Ox 100 100 95 100 O2 Delivery Room Air Room Air Room Air Room Air 06/15/16 06/15/16 06/15/16 06/15/16 01:05 03:00 03:25 04:22 Temp 98.1 98.1 Pulse 86 Resp 17 14 16 B/P 122/76 Pulse Ox 100 97 100 100 O2 Delivery Room Air Room Air Room Air Room Air 06/15/16 06/15/16 06/15/16 06/15/16 07:00 08:00 08:07 11:00 Temp 99.3 97.9 99.3 97.9 Pulse 78 78 Resp 18 18 B/P 117/69 106/65 Pulse Ox 97 96 O2 Delivery Room Air Room Air Room Air Room Air 06/15/16 12:24 O2 Delivery Room Air Intake and Output 06/14/16 06/14/16 06/15/16 15:00 23:00 07:00 Intake Total 360 ml 2680 ml 1600 ml Output Total 205 ml Balance 360 ml 2475 ml 1600 ml GUCCI ISAAC MD Jun 15, 2016 14:51
[2016-06-15 15:00] VITALS: BP 106/61
[2016-06-15] MEDS: DIPHENHYDRAMINE HCL 25 MG CAPSULE PO PRN ×2 (15:19→20:53)
[2016-06-15] MEDS ORDERED: BISACODYL 10 MG SUPP.RECT PR PRN ×2 (16:00→17:45)
[2016-06-15 17:59] LABS: HEMATOCRIT 41.7 % (39.0-53.0); HEMOGLOBIN 13.7 g/dL (13.0-17.5)
[2016-06-15] MEDS: methylPREDNISolone 4 MG TABLET. PO SCH ×4 (18:41→20:53)
[2016-06-15] MEDS: CYCLOBENZAPRINE 10 MG TABLET. PO SCH ×2 (18:42→23:47)
[2016-06-15] MEDS: VANCOMYCIN PER PHARMACY MC PRN (18:45)
[2016-06-15 19:00] VITALS: BP 118/75
[2016-06-15 23:00] VITALS: BP 113/71
[2016-06-16] MEDS: OXYCODONE/APAP 10/325 TABLET. PO PRN ×6 (00:56→23:29)
[2016-06-16] MEDS: VANCOMYCIN 1 GM in IV NORMAL SALINE 250ML 250 ML IV SCH ×3 (02:35→19:54)
[2016-06-16 03:16] VITALS: BP 110/65
[2016-06-16] MEDS: DIPHENHYDRAMINE HCL 25 MG CAPSULE PO PRN ×3 (05:14→20:41)
[2016-06-16] MEDS: CYCLOBENZAPRINE 10 MG TABLET. PO SCH ×4 (05:14→23:28)
[2016-06-16 07:00] VITALS: BP 113/75
[2016-06-16] MEDS: PANTOPRAZOLE 40 MG TABLET. PO SCH (08:00)
[2016-06-16] MEDS: POLYETHYLENE GLYCOL 3350 17 GM PACKET. PO PRN (08:00)
[2016-06-16] MEDS: methylPREDNISolone 4 MG TABLET. PO SCH ×3 (08:00→17:44)
[2016-06-16] MEDS: BISACODYL 5 MG TABLET.DR. PO SCH (08:01)
[2016-06-16] MEDS: SENNOSIDES/DOCUSATE 8.6/50MG TABLET. PO SCH (08:01)
--- NOTE | 2016-06-16 10:12 | PDOC ---
PROGRESS NOTES Subjective Subjective He admits of not sleeping well. Objective Objective Vital Signs Date Time Temp Pulse Resp B/P Pulse Ox O2 Delivery O2 Flow Rate FiO2 06/16/16 09:30 Room Air 06/16/16 07:00 97.7 87 18 113/75 96 97.7 06/16/16 01:56 8.0 Intake and Output 06/16/16 07:00 Intake Total 1940 ml Output Total 2100 ml Balance -160 ml Intake Oral 1440 ml IV Total 500 ml Output Urine Total 2100 ml # Voids 2 Physical Exam Physical Exam He continues with painfully limited lumbar spine ROM and tenderness to palpation over lower thoracic and lumbar paraspinal muscles and sacroiliac joints bilaterally but he is independent with mobility and self care. Assessment Assessment Problems Medical Problems: (1) Felon of finger Status: Acute (2) Tenosynovitis Status: Acute Plan Plan of Residential when medically stable. Comment Review of Relevant I have reviewed the following items steven (where applicable) has been applied. Labs Laboratory Tests Test 06/15/16 02:00 06/15/16 17:55 Urine Opiates Screen Pos (NEG) Urine Methadone Screen Neg (NEG) Urine Barbiturates Neg (NEG) Urine Phencyclidine Screen Neg (NEG) Urine Amphetamine/Methamphetamine Neg (NEG) Urine Benzodiazepines Screen Neg (NEG) Urine Cocaine Screen Pos (NEG) Urine Cannabinoids Screen Neg (NEG) Urine Ethyl Alcohol Neg (NEG) Hemoglobin 13.7g/dL (13.0-17.5) Hematocrit 41.7% (39.0-53.0) Mean Corpuscular Hemoglobin Concent 33g/dL (31-37) Vancomycin Level Trough 6.9mcg/mL (10.0-20.0) Vancomycin Last Dose Date 06/14/16 Vancomycin Last Dose Time 1800 Laboratory Tests Test 06/15/16 17:55 Hemoglobin 13.7g/dL (13.0-17.5) Hematocrit 41.7% (39.0-53.0) Mean Corpuscular Hemoglobin Concent 33g/dL (31-37) Vancomycin Level Trough 6.9mcg/mL (10.0-20.0) Vancomycin Last Dose Date 06/14/16 Vancomycin Last Dose Time 1800 Microbiology 06/14/16 Gram Stain - Final, Complete Medications Current Medications Morphine Sulfate 5 mg 5 mg 1X ONCE IV Last administered on 06/13/16t 18:34; Start 06/13/16 at 18:15; Stop 06/13/16 at 18:16; Status DC Sodium Chloride 500 ml @ 500 mls/hr 1X ONCE IV Last administered on 18:33; Start 06/13/16 at 18:15; Stop 06/13/16 at 19:14; Status DC Vancomycin HCl 250 ml @ 250 mls/hr 1X ONCE IV Last administered on 06/13/16 18:38; Start 06/13/16 at 18:15; Stop 06/13/16 at 19:14; Status DC Diphtheria/ Tetanus/Acell Pertussis (Boostrix) 0.5 ml ONCE ONCE VAX IM Last administered on 06/13/16 18:48; Start 06/13/16 at 18:30; Stop 06/13/16 at 18:31 ; Status DC Morphine Sulfate 5 mg 1X ONCE IV Last administered on 06/13/16 20:05; Start 06/13/16 at 20:00; Stop 06/13/16 at 20:01; Status DC Morphine Sulfate 4 mg 4 mg PRN Q4HRS PRN IV PAIN Last administered on 13:24; Start 06/13/16 at 20:00; Stop 06/14/16 at 19:59; Status DC Sodium Chloride (Iv Sodium Chloride 0.9% 1000ml Bag) 1,000 ml @ 125 mls/hr Q8H IV Last administered on 06/14/16 05:49; Start 06/13/16 at 20:30; Stop at 13:18; Status DC Vancomycin HCl (Vanco Per Pharmacy) 1 each PRN DAILY PRN MC SEE COMMENTS Last administered on 06/15/16 18:45; Start 06/13/16 at 20:00 Hydromorphone HCl (Dilaudid) 2 mg PRN Q4HRS PRN IV PAIN; Start 06/13/16 at 20: 30; Stop 06/14/16 at 12:55; Status DC Oxycodone/ Acetaminophen (Percocet 10/325) 1 tab PRN Q4HRS PRN PO PAIN Last administered on 06/16/16 09:30; Start 06/13/16 at 20:30 Acetaminophen (Tylenol) 650 mg PRN Q6HRS PRN PO FEVER Last administered on 06/15 19:55; Start 06/13/16 at 20:30 Ondansetron HCl 4 mg 4 mg PRN Q6HRS PRN IV NAUSEA/VOMITING Last administered on 06/14/16 13:23; Start 06/13/16 at 20:30 Vancomycin HCl/ Sodium Chloride (Iv Sodium Chloride 0.9% 250ml) 250 ml @ 250 mls/hr Q12H IV Last administered on 06/15/16 06:17; Start 06/14/16 at 06:00; Stop 06/15/16 at 18:41; Status DC Vancomycin HCl 1 each 1X ONCE MC Last administered on 06/15/16 17:30; Start 06/15/16 at 17:30; Stop 06/15/16 at 17:31; Status DC Hydromorphone HCl (Dilaudid) 2 mg PRN Q1HR PRN IV PAIN; Start 06/14/16 at 13:00 ; Stop 06/15/16 at 17:54; Status DC Ketorolac Tromethamine 30 mg 30 mg 1X ONCE IV Last administered on 06/14/16 13:23; Start 06/14/16 at 13:00; Stop 06/14/16 at 13:01; Status DC Sodium Chloride (Iv Sodium Chloride 0.9% 1000ml Bag) 1,000 ml @ 150 mls/hr Q6H40M IV ; Start 06/14/16 at 13:17; Stop 06/14/16 at 13:23; Status DC Ketorolac Tromethamine (Toradol) 30 mg 1X ONCE IV ; Start 06/14/16 at 13:30; Stop 06/14/16 at 13:31; Status DC Diphenhydramine HCl (Benadryl) 50 mg 1X ONCE IVP Last administered on 13:54; Start 06/14/16 at 13:30; Stop 06/14/16 at 13:31; Status DC Ondansetron HCl (Zofran) 4 mg PRN Q6HRS PRN IV Nausea; Start 06/14/16 at 16:45 ; Stop 06/15/16 at 16:44; Status DC Fentanyl Citrate (Fentanyl 2ml Vial) 25 mcg PRN Q5MIN PRN IV MILD PAIN Last administered on 06/14/16 18:40; Start 06/14/16 at 16:45; Stop 06/15/16 at 16:44 ; Status DC Fentanyl Citrate (Fentanyl 2ml Vial) 50 mcg PRN Q5MIN PRN IV MODERATE PAIN; Start 06/14/16 at 16:45; Stop 06/15/16 at 16:44; Status DC Morphine Sulfate 1 mg 1 mg PRN Q10MIN PRN IV SEVERE PAIN; Start 06/14/16 at 16: 45; Stop 06/15/16 at 16:44; Status DC Lactated Ringer's (Iv Lactated Ringers) 1,000 ml @ 0 mls/hr Q0M IV Last administered on 06/14/16 18:39; Start 06/14/16 at 16:41; Stop 06/15/16 at 04:40 ; Status DC Lidocaine HCl 2 ml 1X PRN PRN ID IV START; Start 06/14/16 at 16:45; Stop at 16:44; Status DC Hydromorphone HCl (Dilaudid) 0.5 mg PRN Q10MIN PRN IV SEV PAIN,Second choice; Start 06/14/16 at 16:45; Stop 06/15/16 at 16:44; Status DC Prochlorperazine Edisylate (Compazine) 5 mg PACU PRN PRN IV NAUSEA; Start 06/14 at 16:45; Stop 06/15/16 at 16:44; Status DC Oxycodone HCl (Roxicodone) 5 mg PRN Q3HRS PRN PO PAIN; Start 06/14/16 at 18:15 ; Stop 06/15/16 at 17:54; Status DC Morphine Sulfate 2 mg PRN Q1HR PRN IV PAIN Last administered on 06/15/16 00:39 ; Start 06/14/16 at 18:15; Stop 06/15/16 at 17:54; Status DC Fentanyl Citrate (Fentanyl 2ml Vial) 25 mcg PRN Q1HR PRN IV PAIN; Start at 18:15; Stop 06/15/16 at 17:54; Status DC Senna/Docusate Sodium (Senna Plus) 1 tab DAILY PO Last administered on 08:01; Start 06/15/16 at 09:00 Polyethylene Glycol (miraLAX PACKET) 17 gm PRN DAILY PRN PO CONSTIPATION Last administered on 06/16/16 08:00; Start 06/14/16 at 18:15 Ondansetron HCl (Zofran) 4 mg PRN Q4HRS PRN IV NAUSEA/VOMITING; Start 06/14/16 at 18:15 Magnesium Hydroxide (Milk Of Magnesia) 2,400 mg 1X PRN PRN PO CONSTIPATION; Start 06/15/16 at 06:00; Stop 06/16/16 at 05:59; Status DC Bisacodyl (Dulcolax Supp) 10 mg 1X PRN PRN [place] CONSTIPATION; Start 06/15/16 at 16:00; Stop 06/16/16 at 15:59 Acetaminophen/ Hydrocodone Bitart (Lortab 7.5/325) 1 tab PRN Q4HRS PRN PO PAIN ; Start 06/14/16 at 18:15; Stop 06/15/16 at 17:54; Status DC Morphine Sulfate 4 mg PRN Q2HR PRN IV PAIN; Start 06/14/16 at 18:15; Stop 06/15 at 17:54; Status DC Acetaminophen/ Hydrocodone Bitart (Lortab 7.5/325) 2 tab PRN Q4HRS PRN PO PAIN ; Start 06/14/16 at 18:15; Stop 06/15/16 at 17:54; Status DC Dextrose 12.5 gm 12.5 gm PRN Q15MIN PRN IV SEE COMMENTS; Start 06/14/16 at 18: 15 Cefazolin Sodium/ Sodium Chloride (Ancef/Iv Sodium Chloride 0.9% 50ml) 50 ml @ 100 mls/hr Q6H IV Last administered on 06/15/16 05:37; Start 06/14/16 at 18:30 ; Stop 06/15/16 at 06:59; Status DC Bupivacaine HCl/ Epinephrine Bitart (Sensorcaine-Epi 0.25%-1:725936 Mpf) 30 ml STK-MED ONCE INJ Last administered on 06/14/16 17:48; Start 06/14/16 at 17:48 ; Stop 06/14/16 at 18:26; Status DC Dexamethasone Sodium Phosphate (Decadron) 20 mg STK-MED ONCE .ROUTE ; Start at 17:01; Stop 06/15/16 at 09:58; Status DC Ondansetron HCl 4 mg 4 mg STK-MED ONCE .ROUTE ; Start 06/14/16 at 17:01; Stop at 09:58; Status DC Propofol (Diprivan) 20 ml @ As Directed STK-MED ONCE IV ; Start 06/14/16 at 17: 01; Stop 06/15/16 at 09:58; Status DC Lidocaine HCl 100 mg STK-MED ONCE .ROUTE ; Start 06/14/16 at 17:01; Stop at 09:58; Status DC Desflurane (Suprane) 15 ml STK-MED ONCE IH ; Start 06/14/16 at 17:01; Stop 06/15 at 09:58; Status DC Fentanyl Citrate (Fentanyl 2ml Vial) 100 mcg STK-MED ONCE .ROUTE ; Start at 17:01; Stop 06/15/16 at 09:58; Status DC Bupivacaine HCl/ Epinephrine Bitart (Sensorcaine-Epi 0.25%-1:200919 Mpf) 30 ml STK-MED ONCE .ROUTE ; Start 06/14/16 at 17:57; Stop 06/15/16 at 09:59; Status DC Lidocaine (Lidoderm) 1 patch DAILY TD Last administered on 06/15/16 14:35; Start 06/15/16 at 13:00; Stop 06/15/16 at 17:54; Status DC Diphenhydramine HCl (Benadryl) 50 mg PRN Q6HRS PRN PO ITCHING Last administered on 06/16/16 05:14; Start 06/15/16 at 15:00 Methylprednisolone (Medrol) 8 mg BID PO Last administered on 06/15/16 20:53; Start 06/15/16 at 09:00; Stop 06/15/16 at 21:01; Status DC Methylprednisolone (Medrol) 4 mg BIDPCLD PO Last administered on 06/15/16 18: 42; Start 06/15/16 at 12:30; Stop 06/15/16 at 17:56; Status DC Methylprednisolone (Medrol) 4 mg TIDPC PO Last administered on 06/16/16 08:00 ; Start 06/16/16 at 08:30; Stop 06/16/16 at 17:31 Methylprednisolone (Medrol) 8 mg QHS PO ; Start 06/16/16 at 21:00; Stop at 21:01 Methylprednisolone (Medrol) 4 mg QIDAFTMEAL PO ; Start 06/17/16 at 09:00; Stop 06/17/16 at 21:01 Methylprednisolone (Medrol) 4 mg TID PO ; Start 06/18/16 at 09:00; Stop at 21:01 Methylprednisolone (Medrol) 4 mg BID PO ; Start 06/19/16 at 09:00; Stop at 21:01 Methylprednisolone (Medrol) 4 mg DAILY PO ; Start 06/20/16 at 09:00; Stop at 09:01 Cyclobenzaprine HCl (Flexeril) 10 mg Q6HRS PO Last administered on 06/16/16 05 :14; Start 06/15/16 at 18:00 Pantoprazole Sodium (Protonix) 40 mg DAILYAC PO Last administered on 06/16/16 08:00; Start 06/16/16 at 07:30 Bisacodyl (Dulcolax Tab) 10 mg DAILY PO Last administered on 06/16/16 08:01; Start 06/16/16 at 09:00 Bisacodyl 10 mg 10 mg PRN DAILY PRN HI CONSTIPATION; Start 06/15/16 at 17:45 Vancomycin HCl/ Sodium Chloride (Iv Sodium Chloride 0.9% 250ml) 250 ml @ 250 mls/hr Q8H IV Last administered on 06/16/16 02:35; Start 06/15/16 at 19:00 Vancomycin HCl 1 each 1X ONCE MC ; Start 06/16/16 at 18:30; Stop 06/16/16 at 18 :31 Active Scripts Active Reported No Known Medications Prior To Admisstion (Info) Each 1 Each MC Vitals/I & O Vital Sign - Last 24 Hours 06/15/16 06/15/16 06/15/16 06/15/16 11:00 12:24 15:00 19:00 Temp 97.9 99.1 99.0 97.9 99.1 99.0 Pulse 78 91 88 Resp 18 20 20 B/P 106/65 106/61 118/75 Pulse Ox 96 97 99 O2 Delivery Room Air Room Air Room Air Room Air 06/15/16 06/15/16 06/15/16 06/16/16 20:00 20:54 23:00 00:56 Temp 99.1 99.1 Pulse 76 Resp 20 B/P 113/71 Pulse Ox 99 95 95 O2 Delivery Room Air Room Air Room Air Room Air 06/16/16 06/16/16 06/16/16 06/16/16 01:56 03:16 05:14 06:14 Temp 98.1 98.1 Pulse 67 Resp 20 B/P 110/65 Pulse Ox 100 100 100 O2 Delivery Room Air Room Air Room Air O2 Flow Rate 8.0 06/16/16 06/16/16 07:00 09:30 Temp 97.7 97.7 Pulse 87 Resp 18 B/P 113/75 Pulse Ox 96 O2 Delivery Room Air Room Air Intake and Output 06/15/16 06/15/16 06/16/16 15:00 23:00 07:00 Intake Total 610 ml 1330 ml Output Total 700 ml 950 ml 450 ml Balance -700 ml -340 ml 880 ml FIDE SINGH MD Jun 16, 2016 10:12
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
[2016-06-16] MEDS ORDERED: CYCL10TA2 PO (11:00)
[2016-06-16] MEDS ORDERED: OXYC-323 PO (11:00)
[2016-06-16] MEDS ORDERED: DOXY100C2 PO (11:00)
[2016-06-16] MEDS ORDERED: DOCU-27 PO (11:00)
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
--- NOTE | 2016-06-16 13:12 | RAD ---
MR LUMBAR SPINE HISTORY:LBP WITH RIGHT LEG RADICULPATHY, NO SX HX, NO PRIORSReason: low back pain with right lumbar radiculitis / Spl. Instructions: / History: Technique: Sagittal T2, sagittal STIR, and sagittal T1-weighted images were obtained. Additional axial T1 and T2 weighted imaging was also performed. FINDINGS: Alignment and curvature are within normal limits. There is no compression fracture. Overall bone marrow signal is within normal limits. The conus terminates normally at the level of L1. Visualized intra-abdominal contents demonstrates no acute abnormality. At L5-S1 there is moderate disc height loss and a broad-based disc protrusion. There is a fissure within the posterior annulus fibrosus of the disc. The protrusion extends into the foramina causing severe left and moderate right foraminal stenosis. Correlate for L5 radiculopathy. The remaining disc levels are well maintained. Impression: Degenerative disc disease at L5-S1 with severe left and moderate right foraminal stenosis. Correlate for L5 radiculopathy symptoms. Electronically signed by: Santosh Agosto (Jun 16, 2016 13:10:38)
--- NOTE | 2016-06-16 13:42 | PDOC ---
PROGRESS NOTES Chief Complaint Chief Complaint 1. right thumb cellulitis w/ tenosynovitis 2. possible bed bug infection 3. Puritis, 4. marked pain, 02/01 plan: History of Present Illness History of Present Illness s/p surg of righ thumb finger pain throbbing and worse today, 11/01 pain persistently now ongoing puritis and back pain cont IV abx PO intake up ad randee consult Physiatry plan DC soon, PO abx, 1 week doxy likely toradol, percocet Vitals Vitals Vital Signs Date Time Temp Pulse Resp B/P Pulse Ox O2 Delivery O2 Flow Rate FiO2 06/16/16 09:30 Room Air 06/16/16 07:00 97.7 87 18 113/75 96 97.7 06/16/16 01:56 8.0 Physical Exam General: Alert, Cooperative, mild distress Heart: Regular rate (at times tachycardic. He reports pain in the thumb.), No murmurs Lungs: Wheezing Abdomen: Soft, No tenderness Extremities: No edema, Other (he has a small puncture wound on the radial side of the thumb. There is a felon abscess with tense swelling of the distal end of the thumb. Sensation is absent at the thumb tip. He does not seem particularly tender along the flexor tendon sheath, and does not have a sausage digit swelling nor loss of interphalangeal joint motion that I would expect with flexor tenosynovitis.) Skin: Other (puncture wound on the thumb. Purulent discoloration of the thumb tip.) Labs LABS Laboratory Tests Test 06/15/16 17:55 Hemoglobin 13.7g/dL (13.0-17.5) Hematocrit 41.7% (39.0-53.0) Mean Corpuscular Hemoglobin Concent 33g/dL (31-37) Vancomycin Level Trough 6.9mcg/mL (10.0-20.0) Vancomycin Last Dose Date 06/14/16 Vancomycin Last Dose Time 1800 Assessment and Plan Assessmemt and Plan he has back pain, feels unable to ambulate, did not sleep well physiatry consulted, lidocaine patch he does not report improvement cont current Problems Medical Problems: (1) Felon of finger Status: Acute (2) Tenosynovitis Status: Acute Problems: Comment Review of Relevant I have reviewed the following items steven (where applicable) has been applied. Labs Laboratory Tests Test 06/15/16 02:00 06/15/16 17:55 Urine Opiates Screen Pos (NEG) Urine Methadone Screen Neg (NEG) Urine Barbiturates Neg (NEG) Urine Phencyclidine Screen Neg (NEG) Urine Amphetamine/Methamphetamine Neg (NEG) Urine Benzodiazepines Screen Neg (NEG) Urine Cocaine Screen Pos (NEG) Urine Cannabinoids Screen Neg (NEG) Urine Ethyl Alcohol Neg (NEG) Hemoglobin 13.7g/dL (13.0-17.5) Hematocrit 41.7% (39.0-53.0) Mean Corpuscular Hemoglobin Concent 33g/dL (31-37) Vancomycin Level Trough 6.9mcg/mL (10.0-20.0) Vancomycin Last Dose Date 06/14/16 Vancomycin Last Dose Time 1800 Laboratory Tests Test 06/15/16 17:55 Hemoglobin 13.7g/dL (13.0-17.5) Hematocrit 41.7% (39.0-53.0) Mean Corpuscular Hemoglobin Concent 33g/dL (31-37) Vancomycin Level Trough 6.9mcg/mL (10.0-20.0) Vancomycin Last Dose Date 06/14/16 Vancomycin Last Dose Time 1800 Microbiology 06/14/16 Anaerobic/Aerobic Culture, Resulted Pending 06/14/16 Anaerobic Culture Result 1 (AMBER), Resulted Pending 06/14/16 Aerobic Culture - Preliminary, Resulted 06/14/16 Aerobic Culture Result 1 (AMBER) - Preliminary, Resulted Medications Current Medications Morphine Sulfate 5 mg 5 mg 1X ONCE IV Last administered on 06/13/16 18:34; Start 06/13/16 at 18:15; Stop 06/13/16 at 18:16; Status DC Sodium Chloride 500 ml @ 500 mls/hr 1X ONCE IV Last administered on 18:33; Start 06/13/16 at 18:15; Stop 06/13/16 at 19:14; Status DC Vancomycin HCl 250 ml @ 250 mls/hr 1X ONCE IV Last administered on 06/13/16 18:38; Start 06/13/16 at 18:15; Stop 06/13/16 at 19:14; Status DC Diphtheria/ Tetanus/Acell Pertussis (Boostrix) 0.5 ml ONCE ONCE VAX IM Last administered on 06/13/16 18:48; Start 06/13/16 at 18:30; Stop 06/13/16 at 18:31 ; Status DC Morphine Sulfate 5 mg 1X ONCE IV Last administered on 06/13/16 20:05; Start 06/13/16 at 20:00; Stop 06/13/16 at 20:01; Status DC Morphine Sulfate 4 mg 4 mg PRN Q4HRS PRN IV PAIN Last administered on 13:24; Start 06/13/16 at 20:00; Stop 06/14/16 at 19:59; Status DC Sodium Chloride (Iv Sodium Chloride 0.9% 1000ml Bag) 1,000 ml @ 125 mls/hr Q8H IV Last administered on 06/14/16 05:49; Start 06/13/16 at 20:30; Stop at 13:18; Status DC Vancomycin HCl (Vanco Per Pharmacy) 1 each PRN DAILY PRN MC SEE COMMENTS Last administered on 06/15/16 18:45; Start 06/13/16 at 20:00 Hydromorphone HCl (Dilaudid) 2 mg PRN Q4HRS PRN IV PAIN; Start 06/13/16 at 20: 30; Stop 06/14/16 at 12:55; Status DC Oxycodone/ Acetaminophen (Percocet 10/325) 1 tab PRN Q4HRS PRN PO PAIN Last administered on 06/16/16 09:30; Start 06/13/16 at 20:30 Acetaminophen (Tylenol) 650 mg PRN Q6HRS PRN PO FEVER Last administered on 06/15 19:55; Start 06/13/16 at 20:30 Ondansetron HCl 4 mg 4 mg PRN Q6HRS PRN IV NAUSEA/VOMITING Last administered on 06/14/16 13:23; Start 06/13/16 at 20:30; Stop 06/16/16 at 12:58; Status DC Vancomycin HCl/ Sodium Chloride (Iv Sodium Chloride 0.9% 250ml) 250 ml @ 250 mls/hr Q12H IV Last administered on 06/15/16 06:17; Start 06/14/16 at 06:00; Stop 06/15/16 at 18:41; Status DC Vancomycin HCl 1 each 1X ONCE MC Last administered on 06/15/16 17:30; Start 06/15/16 at 17:30; Stop 06/15/16 at 17:31; Status DC Hydromorphone HCl (Dilaudid) 2 mg PRN Q1HR PRN IV PAIN; Start 06/14/16 at 13:00 ; Stop 06/15/16 at 17:54; Status DC Ketorolac Tromethamine 30 mg 30 mg 1X ONCE IV Last administered on 06/14/16 13:23; Start 06/14/16 at 13:00; Stop 06/14/16 at 13:01; Status DC Sodium Chloride (Iv Sodium Chloride 0.9% 1000ml Bag) 1,000 ml @ 150 mls/hr Q6H40M IV ; Start 06/14/16 at 13:17; Stop 06/14/16 at 13:23; Status DC Ketorolac Tromethamine (Toradol) 30 mg 1X ONCE IV ; Start 06/14/16 at 13:30; Stop 06/14/16 at 13:31; Status DC Diphenhydramine HCl (Benadryl) 50 mg 1X ONCE IVP Last administered on 13:54; Start 06/14/16 at 13:30; Stop 06/14/16 at 13:31; Status DC Ondansetron HCl (Zofran) 4 mg PRN Q6HRS PRN IV Nausea; Start 06/14/16 at 16:45 ; Stop 06/15/16 at 16:44; Status DC Fentanyl Citrate (Fentanyl 2ml Vial) 25 mcg PRN Q5MIN PRN IV MILD PAIN Last administered on 06/14/16 18:40; Start 06/14/16 at 16:45; Stop 06/15/16 at 16:44 ; Status DC Fentanyl Citrate (Fentanyl 2ml Vial) 50 mcg PRN Q5MIN PRN IV MODERATE PAIN; Start 06/14/16 at 16:45; Stop 06/15/16 at 16:44; Status DC Morphine Sulfate 1 mg 1 mg PRN Q10MIN PRN IV SEVERE PAIN; Start 06/14/16 at 16: 45; Stop 06/15/16 at 16:44; Status DC Lactated Ringer's (Iv Lactated Ringers) 1,000 ml @ 0 mls/hr Q0M IV Last administered on 06/14/16 18:39; Start 06/14/16 at 16:41; Stop 06/15/16 at 04:40 ; Status DC Lidocaine HCl 2 ml 1X PRN PRN ID IV START; Start 06/14/16 at 16:45; Stop at 16:44; Status DC Hydromorphone HCl (Dilaudid) 0.5 mg PRN Q10MIN PRN IV SEV PAIN,Second choice; Start 06/14/16 at 16:45; Stop 06/15/16 at 16:44; Status DC Prochlorperazine Edisylate (Compazine) 5 mg PACU PRN PRN IV NAUSEA; Start 06/14 at 16:45; Stop 06/15/16 at 16:44; Status DC Oxycodone HCl (Roxicodone) 5 mg PRN Q3HRS PRN PO PAIN; Start 06/14/16 at 18:15 ; Stop 06/15/16 at 17:54; Status DC Morphine Sulfate 2 mg PRN Q1HR PRN IV PAIN Last administered on 06/15/16 00:39 ; Start 06/14/16 at 18:15; Stop 06/15/16 at 17:54; Status DC Fentanyl Citrate (Fentanyl 2ml Vial) 25 mcg PRN Q1HR PRN IV PAIN; Start at 18:15; Stop 06/15/16 at 17:54; Status DC Senna/Docusate Sodium (Senna Plus) 1 tab DAILY PO Last administered on 08:01; Start 06/15/16 at 09:00 Polyethylene Glycol (miraLAX PACKET) 17 gm PRN DAILY PRN PO CONSTIPATION Last administered on 06/16/16 08:00; Start 06/14/16 at 18:15 Ondansetron HCl (Zofran) 4 mg PRN Q4HRS PRN IV NAUSEA/VOMITING; Start 06/14/16 at 18:15 Magnesium Hydroxide (Milk Of Magnesia) 2,400 mg 1X PRN PRN PO CONSTIPATION; Start 06/15/16 at 06:00; Stop 06/16/16 at 05:59; Status DC Bisacodyl (Dulcolax Supp) 10 mg 1X PRN PRN [place] CONSTIPATION; Start 06/15/16 at 16:00; Stop 06/16/16 at 15:59 Acetaminophen/ Hydrocodone Bitart (Lortab 7.5/325) 1 tab PRN Q4HRS PRN PO PAIN ; Start 06/14/16 at 18:15; Stop 06/15/16 at 17:54; Status DC Morphine Sulfate 4 mg PRN Q2HR PRN IV PAIN; Start 06/14/16 at 18:15; Stop 06/15 at 17:54; Status DC Acetaminophen/ Hydrocodone Bitart (Lortab 7.5/325) 2 tab PRN Q4HRS PRN PO PAIN ; Start 06/14/16 at 18:15; Stop 06/15/16 at 17:54; Status DC Dextrose 12.5 gm 12.5 gm PRN Q15MIN PRN IV SEE COMMENTS; Start 06/14/16 at 18: 15 Cefazolin Sodium/ Sodium Chloride (Ancef/Iv Sodium Chloride 0.9% 50ml) 50 ml @ 100 mls/hr Q6H IV Last administered on 06/15/16 05:37; Start 06/14/16 at 18:30 ; Stop 06/15/16 at 06:59; Status DC Bupivacaine HCl/ Epinephrine Bitart (Sensorcaine-Epi 0.25%-1:[id number] Mpf) 30 ml STK-MED ONCE INJ Last administered on 06/14/16 17:48; Start 06/14/16 at 17:48 ; Stop 06/14/16 at 18:26; Status DC Dexamethasone Sodium Phosphate (Decadron) 20 mg STK-MED ONCE .ROUTE ; Start at 17:01; Stop 06/15/16 at 09:58; Status DC Ondansetron HCl 4 mg 4 mg STK-MED ONCE .ROUTE ; Start 06/14/16 at 17:01; Stop at 09:58; Status DC Propofol (Diprivan) 20 ml @ As Directed STK-MED ONCE IV ; Start 06/14/16 at 17: 01; Stop 06/15/16 at 09:58; Status DC Lidocaine HCl 100 mg STK-MED ONCE .ROUTE ; Start 06/14/16 at 17:01; Stop at 09:58; Status DC Desflurane (Suprane) 15 ml STK-MED ONCE IH ; Start 06/14/16 at 17:01; Stop 06/15 at 09:58; Status DC Fentanyl Citrate (Fentanyl 2ml Vial) 100 mcg STK-MED ONCE .ROUTE ; Start at 17:01; Stop 06/15/16 at 09:58; Status DC Bupivacaine HCl/ Epinephrine Bitart (Sensorcaine-Epi 0.25%-1:407808 Mpf) 30 ml STK-MED ONCE .ROUTE ; Start 06/14/16 at 17:57; Stop 06/15/16 at 09:59; Status DC Lidocaine (Lidoderm) 1 patch DAILY TD Last administered on 06/15/16 14:35; Start 06/15/16 at 13:00; Stop 06/15/16 at 17:54; Status DC Diphenhydramine HCl (Benadryl) 50 mg PRN Q6HRS PRN PO ITCHING Last administered on 06/16/16 12:13; Start 06/15/16 at 15:00 Methylprednisolone (Medrol) 8 mg BID PO Last administered on 06/15/16 20:53; Start 06/15/16 at 09:00; Stop 06/15/16 at 21:01; Status DC Methylprednisolone (Medrol) 4 mg BIDPCLD PO Last administered on 06/15/16 18: 42; Start 06/15/16 at 12:30; Stop 06/15/16 at 17:56; Status DC Methylprednisolone (Medrol) 4 mg TIDPC PO Last administered on 06/16/16 12:13 ; Start 06/16/16 at 08:30; Stop 06/16/16 at 17:31 Methylprednisolone (Medrol) 8 mg QHS PO ; Start 06/16/16 at 21:00; Stop at 21:01 Methylprednisolone (Medrol) 4 mg QIDAFTMEAL PO ; Start 06/17/16 at 09:00; Stop 06/17/16 at 21:01 Methylprednisolone (Medrol) 4 mg TID PO ; Start 06/18/16 at 09:00; Stop at 21:01 Methylprednisolone (Medrol) 4 mg BID PO ; Start 06/19/16 at 09:00; Stop at 21:01 Methylprednisolone (Medrol) 4 mg DAILY PO ; Start 06/20/16 at 09:00; Stop at 09:01 Cyclobenzaprine HCl (Flexeril) 10 mg Q6HRS PO Last administered on 06/16/16 12 :13; Start 06/15/16 at 18:00 Pantoprazole Sodium (Protonix) 40 mg DAILYAC PO Last administered on 06/16/16 08:00; Start 06/16/16 at 07:30 Bisacodyl (Dulcolax Tab) 10 mg DAILY PO Last administered on 06/16/16 08:01; Start 06/16/16 at 09:00 Bisacodyl 10 mg 10 mg PRN DAILY PRN [place] CONSTIPATION; Start 06/15/16 at 17:45 Vancomycin HCl/ Sodium Chloride (Iv Sodium Chloride 0.9% 250ml) 250 ml @ 250 mls/hr Q8H IV Last administered on 06/16/16 12:13; Start 06/15/16 at 19:00 Vancomycin HCl 1 each 1X ONCE MC ; Start 06/16/16 at 18:30; Stop 06/16/16 at 18 :31 Active Scripts Active Doxycycline Hyclate 100 Mg Capsule 1 Cap PO BID Colace (Docusate Sodium) 100 Mg Capsule 1 Cap PO BID Percocet 5-325 Mg Tablet (Oxycodone/Acetaminophen) 1 Each Tablet 1-2 Tab PO Q4HRS Cyclobenzaprine Hcl 10 Mg Tablet 10 Mg PO Q6HRS Reported No Known Medications Prior To Admisstion (Info) Each 1 Each Vitals/I & O Vital Sign - Last 24 Hours 06/15/16 06/15/16 06/15/16 06/15/16 15:00 19:00 20:00 20:54 Temp 99.1 99.0 99.1 99.0 Pulse 91 88 Resp 20 20 B/P 106/61 118/75 Pulse Ox 97 99 99 O2 Delivery Room Air Room Air Room Air Room Air 06/15/16 06/16/16 06/16/16 06/16/16 23:00 00:56 01:56 03:16 Temp 99.1 98.1 99.1 98.1 Pulse 76 67 Resp 20 20 B/P 113/71 110/65 Pulse Ox 95 95 100 O2 Delivery Room Air Room Air Room Air O2 Flow Rate 8.0 06/16/16 06/16/16 06/16/1606/16/17 05:14 06:14 07:00 08:00 Temp 97.7 97.7 Pulse 87 Resp 18 B/P 113/75 Pulse Ox 100 100 96 O2 Delivery Room Air Room Air Room Air Room Air 06/16/16 09:30 O2 Delivery Room Air Intake and Output 06/15/16 06/15/16 06/16/16 15:00 23:00 07:00 Intake Total 610 ml 1330 ml Output Total 700 ml 950 ml 450 ml Balance -700 ml -340 ml 880 ml GUCCI ISAAC MD Jun 16, 2016 13:42
[2016-06-16 15:00] VITALS: BP 120/79
[2016-06-16 19:00] VITALS: BP 118/72
[2016-06-16] MEDS: VANCOMYCIN PER PHARMACY MC PRN (19:49)
[2016-06-16] MEDS ORDERED: methylPREDNISolone 4 MG TABLET. PO SCH (21:00)
[2016-06-16 23:00] VITALS: BP 118/62
[2016-06-17 03:05] VITALS: BP 113/70
[2016-06-17] MEDS: DIPHENHYDRAMINE HCL 25 MG CAPSULE PO PRN ×2 (03:30→12:35)
[2016-06-17] MEDS: OXYCODONE/APAP 10/325 TABLET. PO PRN ×4 (03:30→20:46)
[2016-06-17] MEDS: VANCOMYCIN 1 GM in IV NORMAL SALINE 250ML 250 ML IV SCH ×3 (03:31→18:16)
[2016-06-17] MEDS: CYCLOBENZAPRINE 10 MG TABLET. PO SCH ×3 (05:13→18:16)
[2016-06-17 07:00] VITALS: BP 117/75
[2016-06-17] MEDS: methylPREDNISolone 4 MG TABLET. PO SCH ×4 (08:38→20:46)
[2016-06-17] MEDS: PANTOPRAZOLE 40 MG TABLET. PO SCH (08:38)
[2016-06-17] MEDS: SENNOSIDES/DOCUSATE 8.6/50MG TABLET. PO SCH (08:38)
[2016-06-17] MEDS: BISACODYL 5 MG TABLET.DR. PO SCH (08:39)
--- NOTE | 2016-06-17 10:06 | PDOC ---
PROGRESS NOTES Chief Complaint Chief Complaint 1. Right thumb cellulitis w/ tenosynovitis 2. Possible bed bug infection 3. Pruritis 4. Marked pain, 10/10 History of Present Illness History of Present Illness Pt resting in bed today Exquisite R thumb pain Removed the bandages and examined the thumb - pt says it does not look or feel better following I&D Now ongoing pruritis and back pain Discussed pain management with RN Vitals Vitals Vital Signs Date Time Temp Pulse Resp B/P Pulse Ox O2 Delivery O2 Flow Rate FiO2 06/17/16 08:38 Room Air 06/17/16 07:00 97.7 80 18 117/75 96 97.7 06/17/16 00:29 8.0 Physical Exam General: Alert, Cooperative, mild distress Heart: Regular rate (at times tachycardic. He reports pain in the thumb.), No murmurs Lungs: Wheezing, Other (Course breath sounds) Abdomen: Soft, No tenderness Extremities: No edema, Other (he has a small puncture wound on the radial side of the thumb. There is a felon abscess with tense swelling of the distal end of the thumb. Sensation is absent at the thumb tip. He does not seem particularly tender along the flexor tendon sheath, and does not have a sausage digit swelling nor loss of interphalangeal joint motion that I would expect with flexor tenosynovitis.) Skin: Other (puncture wound on the thumb. Purulent discoloration of the thumb tip.) Labs LABS Laboratory Tests Test 06/16/16 18:25 Vancomycin Level Trough 12.1mcg/mL (10.0-20.0) Vancomycin Last Dose Date Vancomycin Last Dose Time 1100 Review of Systems Review of Systems Complains of back pain Complains of fatigue Assessment and Plan Assessmemt and Plan Problems Medical Problems: (1) Felon of finger Status: Acute (2) Tenosynovitis Status: Acute Assessment: 1. Right thumb cellulitis w/ tenosynovitis 2. Possible bed bug infection 3. Pruritis 4. Marked pain, 1010 Plan: Obtain better pain control Continue wound management Continue antibiotics Continue steroids Repeat labs PTOT Problems: Comment Review of Relevant I have reviewed the following items steven (where applicable) has been applied. Labs Laboratory Tests Test 06/15/16 17:55 06/16/16 18:25 Hemoglobin 13.7g/dL (13.0-17.5) Hematocrit 41.7% (39.0-53.0) Mean Corpuscular Hemoglobin Concent 33g/dL (31-37) Vancomycin Level Trough 6.9mcg/mL (10.0-20.0) 12.1mcg/mL (10.0-20.0) Vancomycin Last Dose Date 06/14/16 Vancomycin Last Dose Time 1800 1100 Laboratory Tests Test 06/16/16 18:25 Vancomycin Level Trough 12.1mcg/mL (10.0-20.0) Vancomycin Last Dose Date Vancomycin Last Dose Time 1100 Microbiology 06/14/16 Anaerobic/Aerobic Culture, Resulted Pending 06/14/16 Anaerobic Culture Result 1 (AMBER), Resulted Pending 06/14/16 Aerobic Culture - Preliminary, Resulted 06/14/16 Aerobic Culture Result 1 (AMBER) - Preliminary, Resulted Medications Current Medications Morphine Sulfate 5 mg 5 mg 1X ONCE IV Last administered on 06/13/16 18:34; Start 06/13/16 at 18:15; Stop 06/13/16 at 18:16; Status DC Sodium Chloride 500 ml @ 500 mls/hr 1X ONCE IV Last administered on 18:33; Start 06/13/16 at 18:15; Stop 06/13/16 at 19:14; Status DC Vancomycin HCl 250 ml @ 250 mls/hr 1X ONCE IV Last administered on 06/13/16 18:38; Start 06/13/16 at 18:15; Stop 06/13/16 at 19:14; Status DC Diphtheria/ Tetanus/Acell Pertussis (Boostrix) 0.5 ml ONCE ONCE VAX IM Last administered on 06/13/16 18:48; Start 06/13/16 at 18:30; Stop 06/13/16 at 18:31 ; Status DC Morphine Sulfate 5 mg 1X ONCE IV Last administered on 06/13/16 20:05; Start 06/13/16 at 20:00; Stop 06/13/16 at 20:01; Status DC Morphine Sulfate 4 mg 4 mg PRN Q4HRS PRN IV PAIN Last administered on 13:24; Start 06/13/16 at 20:00; Stop 06/14/16 at 19:59; Status DC Sodium Chloride (Iv Sodium Chloride 0.9% 1000ml Bag) 1,000 ml @ 125 mls/hr Q8H IV Last administered on 06/14/16 05:49; Start 06/13/16 at 20:30; Stop at 13:18; Status DC Vancomycin HCl (Vanco Per Pharmacy) 1 each PRN DAILY PRN MC SEE COMMENTS Last administered on 06/16/16 19:49; Start 06/13/16 at 20:00 Hydromorphone HCl (Dilaudid) 2 mg PRN Q4HRS PRN IV PAIN; Start 06/13/16 at 20: 30; Stop 06/14/16 at 12:55; Status DC Oxycodone/ Acetaminophen (Percocet 10/325) 1 tab PRN Q4HRS PRN PO PAIN Last administered on 06/17/16 08:38; Start 06/13/16 at 20:30 Acetaminophen (Tylenol) 650 mg PRN Q6HRS PRN PO FEVER Last administered on 06/15 19:55; Start 06/13/16 at 20:30 Ondansetron HCl 4 mg 4 mg PRN Q6HRS PRN IV NAUSEA/VOMITING Last administered on 06/14/16 13:23; Start 06/13/16 at 20:30; Stop 06/16/16 at 12:58; Status DC Vancomycin HCl/ Sodium Chloride (Iv Sodium Chloride 0.9% 250ml) 250 ml @ 250 mls/hr Q12H IV Last administered on 06/15/16 06:17; Start 06/14/16 at 06:00; Stop 06/15/16 at 18:41; Status DC Vancomycin HCl 1 each 1X ONCE MC Last administered on 06/15/16 17:30; Start 06/15/16 at 17:30; Stop 06/15/16 at 17:31; Status DC Hydromorphone HCl (Dilaudid) 2 mg PRN Q1HR PRN IV PAIN; Start 06/14/16 at 13:00 ; Stop 06/15/16 at 17:54; Status DC Ketorolac Tromethamine 30 mg 30 mg 1X ONCE IV Last administered on 06/14/16 13:23; Start 06/14/16 at 13:00; Stop 06/14/16 at 13:01; Status DC Sodium Chloride (Iv Sodium Chloride 0.9% 1000ml Bag) 1,000 ml @ 150 mls/hr Q6H40M IV ; Start 06/14/16 at 13:17; Stop 06/14/16 at 13:23; Status DC Ketorolac Tromethamine (Toradol) 30 mg 1X ONCE IV ; Start 06/14/16 at 13:30; Stop 06/14/16 at 13:31; Status DC Diphenhydramine HCl (Benadryl) 50 mg 1X ONCE IVP Last administered on 13:54; Start 06/14/16 at 13:30; Stop 06/14/16 at 13:31; Status DC Ondansetron HCl (Zofran) 4 mg PRN Q6HRS PRN IV Nausea; Start 06/14/16 at 16:45 ; Stop 06/15/16 at 16:44; Status DC Fentanyl Citrate (Fentanyl 2ml Vial) 25 mcg PRN Q5MIN PRN IV MILD PAIN Last administered on 06/14/16 18:40; Start 06/14/16 at 16:45; Stop 06/15/16 at 16:44 ; Status DC Fentanyl Citrate (Fentanyl 2ml Vial) 50 mcg PRN Q5MIN PRN IV MODERATE PAIN; Start 06/14/16 at 16:45; Stop 06/15/16 at 16:44; Status DC Morphine Sulfate 1 mg 1 mg PRN Q10MIN PRN IV SEVERE PAIN; Start 06/14/16 at 16: 45; Stop 06/15/16 at 16:44; Status DC Lactated Ringer's (Iv Lactated Ringers) 1,000 ml @ 0 mls/hr Q0M IV Last administered on 06/14/16 18:39; Start 06/14/16 at 16:41; Stop 06/15/16 at 04:40 ; Status DC Lidocaine HCl 2 ml 1X PRN PRN ID IV START; Start 06/14/16 at 16:45; Stop at 16:44; Status DC Hydromorphone HCl (Dilaudid) 0.5 mg PRN Q10MIN PRN IV SEV PAIN,Second choice; Start 06/14/16 at 16:45; Stop 06/15/16 at 16:44; Status DC Prochlorperazine Edisylate (Compazine) 5 mg PACU PRN PRN IV NAUSEA; Start 06/14 at 16:45; Stop 06/15/16 at 16:44; Status DC Oxycodone HCl (Roxicodone) 5 mg PRN Q3HRS PRN PO PAIN; Start 06/14/16 at 18:15 ; Stop 06/15/16 at 17:54; Status DC Morphine Sulfate 2 mg PRN Q1HR PRN IV PAIN Last administered on 06/15/16 00:39 ; Start 06/14/16 at 18:15; Stop 06/15/16 at 17:54; Status DC Fentanyl Citrate (Fentanyl 2ml Vial) 25 mcg PRN Q1HR PRN IV PAIN; Start at 18:15; Stop 06/15/16 at 17:54; Status DC Senna/Docusate Sodium (Senna Plus) 1 tab DAILY PO Last administered on 08:38; Start 06/15/16 at 09:00 Polyethylene Glycol (miraLAX PACKET) 17 gm PRN DAILY PRN PO CONSTIPATION Last administered on 06/16/16 08:00; Start 06/14/16 at 18:15 Ondansetron HCl (Zofran) 4 mg PRN Q4HRS PRN IV NAUSEA/VOMITING; Start 06/14/16 at 18:15 Magnesium Hydroxide (Milk Of Magnesia) 2,400 mg 1X PRN PRN PO CONSTIPATION; Start 06/15/16 at 06:00; Stop 06/16/16 at 05:59; Status DC Bisacodyl (Dulcolax Supp) 10 mg 1X PRN PRN SC CONSTIPATION; Start 06/15/16 at 16:00; Stop 06/16/16 at 15:59; Status DC Acetaminophen/ Hydrocodone Bitart (Lortab 7.5/325) 1 tab PRN Q4HRS PRN PO PAIN ; Start 06/14/16 at 18:15; Stop 06/15/16 at 17:54; Status DC Morphine Sulfate 4 mg PRN Q2HR PRN IV PAIN; Start 06/14/16 at 18:15; Stop 06/15 at 17:54; Status DC Acetaminophen/ Hydrocodone Bitart (Lortab 7.5/325) 2 tab PRN Q4HRS PRN PO PAIN ; Start 06/14/16 at 18:15; Stop 06/15/16 at 17:54; Status DC Dextrose 12.5 gm 12.5 gm PRN Q15MIN PRN IV SEE COMMENTS; Start 06/14/16 at 18: 15 Cefazolin Sodium/ Sodium Chloride (Ancef/Iv Sodium Chloride 0.9% 50ml) 50 ml @ 100 mls/hr Q6H IV Last administered on 06/15/16 05:37; Start 06/14/16 at 18:30 ; Stop 06/15/16 at 06:59; Status DC Bupivacaine HCl/ Epinephrine Bitart (Sensorcaine-Epi 0.25%-1:911012 Mpf) 30 ml STK-MED ONCE INJ Last administered on 06/14/16 17:48; Start 06/14/16 at 17:48 ; Stop 06/14/16 at 18:26; Status DC Dexamethasone Sodium Phosphate (Decadron) 20 mg STK-MED ONCE .ROUTE ; Start at 17:01; Stop 06/15/16 at 09:58; Status DC Ondansetron HCl 4 mg 4 mg STK-MED ONCE .ROUTE ; Start 06/14/16 at 17:01; Stop at 09:58; Status DC Propofol (Diprivan) 20 ml @ As Directed STK-MED ONCE IV ; Start 06/14/16 at 17: 01; Stop 06/15/16 at 09:58; Status DC Lidocaine HCl 100 mg STK-MED ONCE .ROUTE ; Start 06/14/16 at 17:01; Stop at 09:58; Status DC Desflurane (Suprane) 15 ml STK-MED ONCE IH ; Start 06/14/16 at 17:01; Stop 06/15 at 09:58; Status DC Fentanyl Citrate (Fentanyl 2ml Vial) 100 mcg STK-MED ONCE .ROUTE ; Start at 17:01; Stop 06/15/16 at 09:58; Status DC Bupivacaine HCl/ Epinephrine Bitart (Sensorcaine-Epi 0.25%-1:061349 Mpf) 30 ml STK-MED ONCE .ROUTE ; Start 06/14/16 at 17:57; Stop 06/15/16 at 09:59; Status DC Lidocaine (Lidoderm) 1 patch DAILY TD Last administered on 06/15/16 14:35; Start 06/15/16 at 13:00; Stop 06/15/16 at 17:54; Status DC Diphenhydramine HCl (Benadryl) 50 mg PRN Q6HRS PRN PO ITCHING Last administered on 06/17/16 03:30; Start 06/15/16 at 15:00 Methylprednisolone (Medrol) 8 mg BID PO Last administered on 06/15/16 20:53; Start 06/15/16 at 09:00; Stop 06/15/16 at 21:01; Status DC Methylprednisolone (Medrol) 4 mg BIDPCLD PO Last administered on 06/15/16 18: 42; Start 06/15/16 at 12:30; Stop 06/15/16 at 17:56; Status DC Methylprednisolone (Medrol) 4 mg TIDPC PO Last administered on 06/16/16 17:44 ; Start 06/16/16 at 08:30; Stop 06/16/16 at 17:31; Status DC Methylprednisolone (Medrol) 8 mg QHS PO Last administered on 06/16/16 20:41; Start 06/16/16 at 21:00; Stop 06/16/16 at 21:01; Status DC Methylprednisolone (Medrol) 4 mg QIDAFTMEAL PO Last administered on 06/17/16 08:38; Start 06/17/16 at 09:00; Stop 06/17/16 at 21:01 Methylprednisolone (Medrol) 4 mg TID PO ; Start 06/18/16 at 09:00; Stop at 21:01 Methylprednisolone (Medrol) 4 mg BID PO ; Start 06/19/16 at 09:00; Stop at 21:01 Methylprednisolone (Medrol) 4 mg DAILY PO ; Start 06/20/16 at 09:00; Stop at 09:01 Cyclobenzaprine HCl (Flexeril) 10 mg Q6HRS PO Last administered on 06/17/16 05 :13; Start 06/15/16 at 18:00 Pantoprazole Sodium (Protonix) 40 mg DAILYAC PO Last administered on 06/17/16 08:38; Start 06/16/16 at 07:30 Bisacodyl (Dulcolax Tab) 10 mg DAILY PO Last administered on 06/17/16 08:39; Start 06/16/16 at 09:00 Bisacodyl 10 mg 10 mg PRN DAILY PRN SC CONSTIPATION; Start 06/15/16 at 17:45 Vancomycin HCl/ Sodium Chloride (Iv Sodium Chloride 0.9% 250ml) 250 ml @ 250 mls/hr Q8H IV Last administered on 06/17/16 03:31; Start 06/15/16 at 19:00 Vancomycin HCl 1 each 1X ONCE MC Last administered on 06/16/16 18:30; Start 06/16/16 at 18:30; Stop 06/16/16 at 18:31; Status DC Active Scripts Active Doxycycline Hyclate 100 Mg Capsule 1 Cap PO BID Colace (Docusate Sodium) 100 Mg Capsule 1 Cap PO BID Percocet 5-325 Mg Tablet (Oxycodone/Acetaminophen) 1 Each Tablet 1-2 Tab PO Q4HRS Cyclobenzaprine Hcl 10 Mg Tablet 10 Mg PO Q6HRS Reported No Known Medications Prior To Admisstion (Info) Each 1 Each Vitals/I & O Vital Sign - Last 24 Hours 06/16/16 06/16/16 06/16/16 06/16/16 14:56 15:00 18:59 19:00 Temp 97.8 98.1 97.8 98.1 Pulse 72 94 Resp 18 20 B/P 120/79 118/72 Pulse Ox 98 98 O2 Delivery Room Air Room Air Room Air Room Air 06/16/16 06/16/16 06/16/16 06/17/16 20:00 23:00 23:29 00:29 Temp 97.7 97.7 Pulse 79 Resp 20 B/P 118/62 Pulse Ox 97 97 O2 Delivery Room Air Room Air Room Air O2 Flow Rate 8.0 06/17/16 06/17/16 06/17/16 06/17/16 03:05 03:30 04:30 07:00 Temp 97.8 97.7 97.8 97.7 Pulse 82 80 Resp 20 18 B/P 113/70 117/75 Pulse Ox 100 100 100 96 O2 Delivery Room Air Room Air Room Air Room Air 06/17/16 08:38 O2 Delivery Room Air Intake and Output 2/06/16/16 06/17/16 15:00 23:00 07:00 Intake Total 500 ml 1850 ml Output Total 300 ml 750 ml Balance 200 ml 1100 ml JOSE LOVELACE III DO Jun 17, 2016 10:06
--- NOTE | 2016-06-17 10:43 | PDOC ---
PROGRESS NOTES Subjective Subjective He admits continued back pain. Objective Objective Vital Signs Date Time Temp Pulse Resp B/P Pulse Ox O2 Delivery O2 Flow Rate FiO2 06/17/16 09:40 Room Air 06/17/16 07:00 97.7 80 18 117/75 96 97.7 06/17/16 00:29 8.0 Intake and Output 06/17/16 07:00 Intake Total 2350 ml Output Total 1050 ml Balance 1300 ml Intake Oral 1600 ml IV Total 750 ml Output Urine Total 1050 ml Physical Exam Physical Exam He is sitting in bed and he does not seem to be in any acute distress.Mri scan of lumbar spine revealed mild DDD and DJD changes. Assessment Assessment Problems Medical Problems: (1) Felon of finger Status: Acute (2) Tenosynovitis Status: Acute Plan Plan of Half[place] when medically stable. Comment Review of Relevant I have reviewed the following items steven (where applicable) has been applied. Labs Laboratory Tests Test 06/15/16 17:55 06/16/16 18:25 Hemoglobin 13.7g/dL (13.0-17.5) Hematocrit 41.7% (39.0-53.0) Mean Corpuscular Hemoglobin Concent 33g/dL (31-37) Vancomycin Level Trough 6.9mcg/mL (10.0-20.0) 12.1mcg/mL (10.0-20.0) Vancomycin Last Dose Date 06/14/16 Vancomycin Last Dose Time 1800 1100 Laboratory Tests Test 06/16/16 18:25 Vancomycin Level Trough 12.1mcg/mL (10.0-20.0) Vancomycin Last Dose Date Vancomycin Last Dose Time 1100 Microbiology 06/14/16 Anaerobic/Aerobic Culture, Resulted Pending 06/14/16 Anaerobic Culture Result 1 (AMBER), Resulted Pending 06/14/16 Aerobic Culture - Preliminary, Resulted 06/14/16 Aerobic Culture Result 1 (AMBER) - Preliminary, Resulted Medications Current Medications Morphine Sulfate 5 mg 5 mg 1X ONCE IV Last administered on 06/13/16 18:34; Start 06/13/16 at 18:15; Stop 06/13/16 at 18:16; Status DC Sodium Chloride 500 ml @ 500 mls/hr 1X ONCE IV Last administered on 18:33; Start 06/13/16 at 18:15; Stop 06/13/16 at 19:14; Status DC Vancomycin HCl 250 ml @ 250 mls/hr 1X ONCE IV Last administered on 06/13/16 18:38; Start 06/13/16 at 18:15; Stop 06/13/16 at 19:14; Status DC Diphtheria/ Tetanus/Acell Pertussis (Boostrix) 0.5 ml ONCE ONCE VAX IM Last administered on 06/13/16 18:48; Start 06/13/16 at 18:30; Stop 06/13/16 at 18:31 ; Status DC Morphine Sulfate 5 mg 1X ONCE IV Last administered on 06/13/16 20:05; Start 06/13/16 at 20:00; Stop 06/13/16 at 20:01; Status DC Morphine Sulfate 4 mg 4 mg PRN Q4HRS PRN IV PAIN Last administered on 13:24; Start 06/13/16 at 20:00; Stop 06/14/16 at 19:59; Status DC Sodium Chloride (Iv Sodium Chloride 0.9% 1000ml Bag) 1,000 ml @ 125 mls/hr Q8H IV Last administered on 06/14/16 05:49; Start 06/13/16 at 20:30; Stop at 13:18; Status DC Vancomycin HCl (Vanco Per Pharmacy) 1 each PRN DAILY PRN MC SEE COMMENTS Last administered on 06/16/16 19:49; Start 06/13/16 at 20:00 Hydromorphone HCl (Dilaudid) 2 mg PRN Q4HRS PRN IV PAIN; Start 06/13/16 at 20: 30; Stop 06/14/16 at 12:55; Status DC Oxycodone/ Acetaminophen (Percocet 10/325) 1 tab PRN Q4HRS PRN PO PAIN Last administered on 06/17/16 08:38; Start 06/13/16 at 20:30 Acetaminophen (Tylenol) 650 mg PRN Q6HRS PRN PO FEVER Last administered on 06/15 19:55; Start 06/13/16 at 20:30 Ondansetron HCl 4 mg 4 mg PRN Q6HRS PRN IV NAUSEA/VOMITING Last administered on 06/14/16 13:23; Start 06/13/16 at 20:30; Stop 06/16/16 at 12:58; Status DC Vancomycin HCl/ Sodium Chloride (Iv Sodium Chloride 0.9% 250ml) 250 ml @ 250 mls/hr Q12H IV Last administered on 06/15/16 06:17; Start 06/14/16 at 06:00; Stop 06/15/16 at 18:41; Status DC Vancomycin HCl 1 each 1X ONCE MC Last administered on 06/15/16 17:30; Start 06/15/16 at 17:30; Stop 06/15/16 at 17:31; Status DC Hydromorphone HCl (Dilaudid) 2 mg PRN Q1HR PRN IV PAIN; Start 06/14/16 at 13:00 ; Stop 06/15/16 at 17:54; Status DC Ketorolac Tromethamine 30 mg 30 mg 1X ONCE IV Last administered on 06/14/16 13:23; Start 06/14/16 at 13:00; Stop 06/14/16 at 13:01; Status DC Sodium Chloride (Iv Sodium Chloride 0.9% 1000ml Bag) 1,000 ml @ 150 mls/hr Q6H40M IV ; Start 06/14/16 at 13:17; Stop 06/14/16 at 13:23; Status DC Ketorolac Tromethamine (Toradol) 30 mg 1X ONCE IV ; Start 06/14/16 at 13:30; Stop 06/14/16 at 13:31; Status DC Diphenhydramine HCl (Benadryl) 50 mg 1X ONCE IVP Last administered on 13:54; Start 06/14/16 at 13:30; Stop 06/14/16 at 13:31; Status DC Ondansetron HCl (Zofran) 4 mg PRN Q6HRS PRN IV Nausea; Start 06/14/16 at 16:45 ; Stop 06/15/16 at 16:44; Status DC Fentanyl Citrate (Fentanyl 2ml Vial) 25 mcg PRN Q5MIN PRN IV MILD PAIN Last administered on 06/14/16 18:40; Start 06/14/16 at 16:45; Stop 06/15/16 at 16:44 ; Status DC Fentanyl Citrate (Fentanyl 2ml Vial) 50 mcg PRN Q5MIN PRN IV MODERATE PAIN; Start 06/14/16 at 16:45; Stop 06/15/16 at 16:44; Status DC Morphine Sulfate 1 mg 1 mg PRN Q10MIN PRN IV SEVERE PAIN; Start 06/14/16 at 16: 45; Stop 06/15/16 at 16:44; Status DC Lactated Ringer's (Iv Lactated Ringers) 1,000 ml @ 0 mls/hr Q0M IV Last administered on 06/14/16 18:39; Start 06/14/16 at 16:41; Stop 06/15/16 at 04:40 ; Status DC Lidocaine HCl 2 ml 1X PRN PRN ID IV START; Start 06/14/16 at 16:45; Stop at 16:44; Status DC Hydromorphone HCl (Dilaudid) 0.5 mg PRN Q10MIN PRN IV SEV PAIN,Second choice; Start 06/14/16 at 16:45; Stop 06/15/16 at 16:44; Status DC Prochlorperazine Edisylate (Compazine) 5 mg PACU PRN PRN IV NAUSEA; Start 06/14 at 16:45; Stop 06/15/16 at 16:44; Status DC Oxycodone HCl (Roxicodone) 5 mg PRN Q3HRS PRN PO PAIN; Start 06/14/16 at 18:15 ; Stop 06/15/16 at 17:54; Status DC Morphine Sulfate 2 mg PRN Q1HR PRN IV PAIN Last administered on 06/15/16 00:39 ; Start 06/14/16 at 18:15; Stop 06/15/16 at 17:54; Status DC Fentanyl Citrate (Fentanyl 2ml Vial) 25 mcg PRN Q1HR PRN IV PAIN; Start at 18:15; Stop 06/15/16 at 17:54; Status DC Senna/Docusate Sodium (Senna Plus) 1 tab DAILY PO Last administered on 08:38; Start 06/15/16 at 09:00 Polyethylene Glycol (miraLAX PACKET) 17 gm PRN DAILY PRN PO CONSTIPATION Last administered on 06/16/16 08:00; Start 06/14/16 at 18:15 Ondansetron HCl (Zofran) 4 mg PRN Q4HRS PRN IV NAUSEA/VOMITING; Start 06/14/16 at 18:15 Magnesium Hydroxide (Milk Of Magnesia) 2,400 mg 1X PRN PRN PO CONSTIPATION; Start 06/15/16 at 06:00; Stop 06/16/16 at 05:59; Status DC Bisacodyl (Dulcolax Supp) 10 mg 1X PRN PRN OR CONSTIPATION; Start 06/15/16 at 16:00; Stop 06/16/16 at 15:59; Status DC Acetaminophen/ Hydrocodone Bitart (Lortab 7.5/325) 1 tab PRN Q4HRS PRN PO PAIN ; Start 06/14/16 at 18:15; Stop 06/15/16 at 17:54; Status DC Morphine Sulfate 4 mg PRN Q2HR PRN IV PAIN; Start 06/14/16 at 18:15; Stop 06/15 at 17:54; Status DC Acetaminophen/ Hydrocodone Bitart (Lortab 7.5/325) 2 tab PRN Q4HRS PRN PO PAIN ; Start 06/14/16 at 18:15; Stop 06/15/16 at 17:54; Status DC Dextrose 12.5 gm 12.5 gm PRN Q15MIN PRN IV SEE COMMENTS; Start 06/14/16 at 18: 15 Cefazolin Sodium/ Sodium Chloride (Ancef/Iv Sodium Chloride 0.9% 50ml) 50 ml @ 100 mls/hr Q6H IV Last administered on 06/15/16t 05:37; Start 06/14/16 at 18:30 ; Stop 06/15/16 at 06:59; Status DC Bupivacaine HCl/ Epinephrine Bitart (Sensorcaine-Epi 0.25%-1:532073 Mpf) 30 ml STK-MED ONCE INJ Last administered on 06/14/16t 17:48; Start 06/14/16 at 17:48 ; Stop 06/14/16 at 18:26; Status DC Dexamethasone Sodium Phosphate (Decadron) 20 mg STK-MED ONCE .ROUTE ; Start at 17:01; Stop 06/15/16 at 09:58; Status DC Ondansetron HCl 4 mg 4 mg STK-MED ONCE .ROUTE ; Start 06/14/16 at 17:01; Stop at 09:58; Status DC Propofol (Diprivan) 20 ml @ As Directed STK-MED ONCE IV ; Start 06/14/16 at 17: 01; Stop 06/15/16 at 09:58; Status DC Lidocaine HCl 100 mg STK-MED ONCE .ROUTE ; Start 06/14/16 at 17:01; Stop at 09:58; Status DC Desflurane (Suprane) 15 ml STK-MED ONCE IH ; Start 06/14/16 at 17:01; Stop 06/15 at 09:58; Status DC Fentanyl Citrate (Fentanyl 2ml Vial) 100 mcg STK-MED ONCE .ROUTE ; Start at 17:01; Stop 06/15/16 at 09:58; Status DC Bupivacaine HCl/ Epinephrine Bitart (Sensorcaine-Epi 0.25%-1:722429 Mpf) 30 ml STK-MED ONCE .ROUTE ; Start 06/14/16 at 17:57; Stop 06/15/16 at 09:59; Status DC Lidocaine (Lidoderm) 1 patch DAILY TD Last administered on 06/15/16 14:35; Start 06/15/16 at 13:00; Stop 06/15/16 at 17:54; Status DC Diphenhydramine HCl (Benadryl) 50 mg PRN Q6HRS PRN PO ITCHING Last administered on 06/17/16 03:30; Start 06/15/16 at 15:00 Methylprednisolone (Medrol) 8 mg BID PO Last administered on 06/15/16 20:53; Start 06/15/16 at 09:00; Stop 06/15/16 at 21:01; Status DC Methylprednisolone (Medrol) 4 mg BIDPCLD PO Last administered on 06/15/16 18: 42; Start 06/15/16 at 12:30; Stop 06/15/16 at 17:56; Status DC Methylprednisolone (Medrol) 4 mg TIDPC PO Last administered on 06/16/16 17:44 ; Start 06/16/16 at 08:30; Stop 06/16/16 at 17:31; Status DC Methylprednisolone (Medrol) 8 mg QHS PO Last administered on 06/16/16 20:41; Start 06/16/16 at 21:00; Stop 06/16/16 at 21:01; Status DC Methylprednisolone (Medrol) 4 mg QIDAFTMEAL PO Last administered on 06/17/16 08:38; Start 06/17/16 at 09:00; Stop 06/17/16 at 21:01 Methylprednisolone (Medrol) 4 mg TID PO ; Start 06/18/16 at 09:00; Stop at 21:01 Methylprednisolone (Medrol) 4 mg BID PO ; Start 06/19/16 at 09:00; Stop at 21:01 Methylprednisolone (Medrol) 4 mg DAILY PO ; Start 06/20/16 at 09:00; Stop at 09:01 Cyclobenzaprine HCl (Flexeril) 10 mg Q6HRS PO Last administered on 06/17/16 05 :13; Start 06/15/16 at 18:00 Pantoprazole Sodium (Protonix) 40 mg DAILYAC PO Last administered on 06/17/16 08:38; Start 06/16/16 at 07:30 Bisacodyl (Dulcolax Tab) 10 mg DAILY PO Last administered on 06/17/16 08:39; Start 06/16/16 at 09:00 Bisacodyl 10 mg 10 mg PRN DAILY PRN OR CONSTIPATION; Start 06/15/16 at 17:45 Vancomycin HCl/ Sodium Chloride (Iv Sodium Chloride 0.9% 250ml) 250 ml @ 250 mls/hr Q8H IV Last administered on 06/17/16 03:31; Start 06/15/16 at 19:00 Vancomycin HCl 1 each 1X ONCE MC Last administered on 06/16/16 18:30; Start 06/16/16 at 18:30; Stop 06/16/16 at 18:31; Status DC Active Scripts Active Doxycycline Hyclate 100 Mg Capsule 1 Cap PO BID Colace (Docusate Sodium) 100 Mg Capsule 1 Cap PO BID Percocet 5-325 Mg Tablet (Oxycodone/Acetaminophen) 1 Each Tablet 1-2 Tab PO Q4HRS Cyclobenzaprine Hcl 10 Mg Tablet 10 Mg PO Q6HRS Reported No Known Medications Prior To Admisstion (Info) Each 1 Each MC Vitals/I & O Vital Sign - Last 24 Hours 06/16/16 06/16/16 06/16/16 06/16/16 14:56 15:00 18:59 19:00 Temp 97.8 98.1 97.8 98.1 Pulse 72 94 Resp 18 20 B/P 120/79 118/72 Pulse Ox 98 98 O2 Delivery Room Air Room Air Room Air Room Air 06/16/16 06/16/16 06/16/16 06/17/16 20:00 23:00 23:29 00:29 Temp 97.7 97.7 Pulse 79 Resp 20 B/P 118/62 Pulse Ox 97 97 O2 Delivery Room Air Room Air Room Air O2 Flow Rate 8.0 06/17/16 06/17/16 06/17/16 06/17/16 03:05 03:30 04:30 07:00 Temp 97.8 97.7 97.8 97.7 Pulse 82 80 Resp 20 18 B/P 113/70 117/75 Pulse Ox 100 100 100 96 O2 Delivery Room Air Room Air Room Air 06/17/16 06/17/16 06/17/16 07:40 08:38 09:40 O2 Delivery Room Air Room Air Room Air Intake and Output 06/16/16 06/16/16 06/17/16 15:00 23:00 07:00 Intake Total 500 ml 1850 ml Output Total 300 ml 750 ml Balance 200 ml 1100 ml FIDE SINGH MD Jun 17, 2016 10:43
[2016-06-17 11:00] VITALS: BP 121/76
--- NOTE | 2016-06-17 13:06 | PDOC ---
PROGRESS NOTES Subjective Subjective still complaining of thumb and back pain Objective Vital Signs Vital Signs Date Time Temp Pulse Resp B/P Pulse Ox O2 Delivery O2 Flow Rate FiO2 06/17/16 11:00 98.1 86 18 121/76 Room Air 96.0 98.1 06/17/16 07:00 96 Physical Exam dressing changed. Packing has previously been removed. No evidence of flexor tenosynovitis. Still slight purulent drainage. Questionable tissue viability at [facility] Labs Laboratory Tests Test 06/15/16 17:55 06/16/16 18:25 Hemoglobin 13.7g/dL (13.0-17.5) Hematocrit 41.7% (39.0-53.0) Mean Corpuscular Hemoglobin Concent 33g/dL (31-37) Vancomycin Level Trough 6.9mcg/mL (10.0-20.0) 12.1mcg/mL (10.0-20.0) Vancomycin Last Dose Date 06/14/16 Vancomycin Last Dose Time 1800 1100 Laboratory Tests Test 06/16/16 18:25 Vancomycin Level Trough 12.1mcg/mL (10.0-20.0) Vancomycin Last Dose Date Vancomycin Last Dose Time 1100 Assessment Assessment POD#3 after I&D felon abscess thumb Problems: Plan Plan of Care await sensitivities. Try adding Toradol for acute pain. No evidence that further surgery needed at this time. Office f/u to see if ischemia/necrosis occurs--it's possible he would need another debridement in 7-14 days. CABRERA BAUER MD Jun 17, 2016 13:06
[2016-06-17] MEDS: KETOROLAC TROMETHAMINE 30 MG/ML SYRINGE. IV SCH ×2 (13:30→18:17)
[2016-06-17 15:00] VITALS: BP 105/68
[2016-06-17] MEDS: VANCOMYCIN PER PHARMACY MC PRN (15:48)
[2016-06-17 19:00] VITALS: BP 145/80
[2016-06-17 23:00] VITALS: BP 145/80
[2016-06-18] MEDS: KETOROLAC TROMETHAMINE 30 MG/ML SYRINGE. IV SCH ×5 (00:16→23:48)
[2016-06-18] MEDS: CYCLOBENZAPRINE 10 MG TABLET. PO SCH ×5 (00:16→23:48)
[2016-06-18] MEDS: OXYCODONE/APAP 10/325 TABLET. PO PRN ×4 (01:22→20:42)
[2016-06-18 03:00] VITALS: BP 104/65
[2016-06-18] MEDS: VANCOMYCIN 1 GM in IV NORMAL SALINE 250ML 250 ML IV SCH ×3 (03:00→18:25)
[2016-06-18 06:33] LABS: CALCIUM 9.4 mg/dL (8.5-10.1); CREATININE 1.1 mg/dL (0.7-1.3); POTASSIUM 4.3 mmol/L (3.5-5.1)
[2016-06-18 06:47] LABS: BASO % 0 % (0-3); EOS % 0 % (0-3); HEMATOCRIT 39.4 % (39.0-53.0); HEMOGLOBIN 13.1 g/dL (13.0-17.5); LYMPH # 2.1 x10^3/uL (1.0-4.8); LYMPH % 22 % (24-48); MEAN CORPUSCULAR HEMOGLOBIN 28 pg (25-35); MEAN CORPUSCULAR HGB CONC 33 g/dL (31-37); MEAN CORPUSCULAR VOLUME 84 fL (79-100); MONO % 8 % (0-9); NEUT % 70 % (31-73); PLATELET COUNT 286 x10^3/uL (140-400); RED BLOOD COUNT 4.69 x10^6/uL (4.30-5.70); RED CELL DISTRIBUTION WIDTH 12.5 % (11.5-14.5)
[2016-06-18 07:00] VITALS: BP 132/88
[2016-06-18] MEDS: PANTOPRAZOLE 40 MG TABLET. PO SCH (08:08)
[2016-06-18] MEDS: SENNOSIDES/DOCUSATE 8.6/50MG TABLET. PO SCH (09:07)
[2016-06-18] MEDS: methylPREDNISolone 4 MG TABLET. PO SCH ×3 (09:07→20:42)
[2016-06-18] MEDS: BISACODYL 5 MG TABLET.DR. PO SCH (09:07)
[2016-06-18 11:00] VITALS: BP 115/72
--- NOTE | 2016-06-18 11:38 | PDOC ---
PROGRESS NOTES Chief Complaint Chief Complaint 1. Right thumb cellulitis 2. Possible bed bug infection 3. Pruritis 4. Marked pain, 10/10 History of Present Illness History of Present Illness Pt resting in bed today Exquisite R thumb pain Discussed that pt should stay in hospital and continue IV antibiotics Pt requested a meeting with social work associate to address living situation outside the hospital VSS Vitals Vitals Vital Signs Date Time Temp Pulse Resp B/P Pulse Ox O2 Delivery O2 Flow Rate FiO2 06/18/16 08:00 Room Air 06/18/16 07:12 96 8.0 06/18/16 07:00 97.9 90 18 132/88 97.9 Physical Exam General: Alert, Cooperative, mild distress Heart: Regular rate (at times tachycardic. He reports pain in the thumb.), No murmurs Lungs: Wheezing, Other (Course breath sounds) Abdomen: Soft, No tenderness Extremities: No cyanosis, No edema Skin: Other (puncture wound on the thumb. Purulent discoloration of the thumb tip.) Labs LABS Laboratory Tests Test 06/18/16 05:04 White Blood Count 10.0x10^3/uL (4.0-11.0) Red Blood Count 4.69x10^6/uL (4.30-5.70) Hemoglobin 13.1g/dL (13.0-17.5) Hematocrit 39.4% (39.0-53.0) Mean Corpuscular Volume 84fL (79-100) Mean Corpuscular Hemoglobin 28pg (25-35) Mean Corpuscular Hemoglobin Concent 33g/dL (31-37) Red Cell Distribution Width 12.5% (11.5-14.5) Platelet Count 286x10^3/uL (140-400) Neutrophils (%) (Auto) 70% (31-73) Lymphocytes (%) (Auto) 22% (24-48) Monocytes (%) (Auto) 8% (0-9) Eosinophils (%) (Auto) 0% (0-3) Basophils (%) (Auto) 0% (0-3) Neutrophils # (Auto) 7.0x10^3uL (1.8-7.7) Lymphocytes # (Auto) 2.1x10^3/uL (1.0-4.8) Monocytes # (Auto) 0.8x10^3/uL (0.0-1.1) Eosinophils # (Auto) 0.0x10^3/uL (0.0-0.7) Basophils # (Auto) 0.0x10^3/uL (0.0-0.2) Sodium Level 140mmol/L (136-145) Potassium Level 4.3mmol/L (3.5-5.1) Chloride Level 104mmol/L (98-107) Carbon Dioxide Level 29mmol/L (21-32) Anion Gap 7 (6-14) Blood Urea Nitrogen 20mg/dL (8-26) Creatinine 1.1mg/dL (0.7-1.3) Estimated GFR (Cockcroft-Gault) 88.0 Glucose Level 129mg/dL (70-99) Calcium Level 9.4mg/dL (8.5-10.1) Review of Systems Review of Systems Complains of thumb pain Complains of back pain Assessment and Plan Assessmemt and Plan Problems Medical Problems: (1) Felon of finger Status: Acute (2) Tenosynovitis Status: Acute Assessment: 1. Right thumb cellulitis 2. Possible bed bug infection 3. Pruritis 4. Marked pain, 02/01 Plan: Continue antibiotics Consult ID Consult social work associate to discuss living situation Gen Surgery and PMR are following - appreciate subspecialty input Repeat labs Continue narcotics PTOT Problems: Comment Review of Relevant I have reviewed the following items steven (where applicable) has been applied. Labs Laboratory Tests Test 06/16/16 18:25 06/18/16 05:04 Vancomycin Level Trough 12.1mcg/mL (10.0-20.0) Vancomycin Last Dose Date Vancomycin Last Dose Time 1100 White Blood Count 10.0x10^3/uL (4.0-11.0) Red Blood Count 4.69x10^6/uL (4.30-5.70) Hemoglobin 13.1g/dL (13.0-17.5) Hematocrit 39.4% (39.0-53.0) Mean Corpuscular Volume 84fL (79-100) Mean Corpuscular Hemoglobin 28pg (25-35) Mean Corpuscular Hemoglobin Concent 33g/dL (31-37) Red Cell Distribution Width 12.5% (11.5-14.5) Platelet Count 286x10^3/uL (140-400) Neutrophils (%) (Auto) 70% (31-73) Lymphocytes (%) (Auto) 22% (24-48) Monocytes (%) (Auto) 8% (0-9) Eosinophils (%) (Auto) 0% (0-3) Basophils (%) (Auto) 0% (0-3) Neutrophils # (Auto) 7.0x10^3uL (1.8-7.7) Lymphocytes # (Auto) 2.1x10^3/uL (1.0-4.8) Monocytes # (Auto) 0.8x10^3/uL (0.0-1.1) Eosinophils # (Auto) 0.0x10^3/uL (0.0-0.7) Basophils # (Auto) 0.0x10^3/uL (0.0-0.2) Sodium Level 140mmol/L (136-145) Potassium Level 4.3mmol/L (3.5-5.1) Chloride Level 104mmol/L (98-107) Carbon Dioxide Level 29mmol/L (21-32) Anion Gap 7 (6-14) Blood Urea Nitrogen 20mg/dL (8-26) Creatinine 1.1mg/dL (0.7-1.3) Estimated GFR (Cockcroft-Gault) 88.0 Glucose Level 129mg/dL (70-99) Calcium Level 9.4mg/dL (8.5-10.1) Laboratory Tests Test 06/18/16 05:04 White Blood Count 10.0x10^3/uL (4.0-11.0) Red Blood Count 4.69x10^6/uL (4.30-5.70) Hemoglobin 13.1g/dL (13.0-17.5) Hematocrit 39.4% (39.0-53.0) Mean Corpuscular Volume 84fL (79-100) Mean Corpuscular Hemoglobin 28pg (25-35) Mean Corpuscular Hemoglobin Concent 33g/dL (31-37) Red Cell Distribution Width 12.5% (11.5-14.5) Platelet Count 286x10^3/uL (140-400) Neutrophils (%) (Auto) 70% (31-73) Lymphocytes (%) (Auto) 22% (24-48) Monocytes (%) (Auto) 8% (0-9) Eosinophils (%) (Auto) 0% (0-3) Basophils (%) (Auto) 0% (0-3) Neutrophils # (Auto) 7.0x10^3uL (1.8-7.7) Lymphocytes # (Auto) 2.1x10^3/uL (1.0-4.8) Monocytes # (Auto) 0.8x10^3/uL (0.0-1.1) Eosinophils # (Auto) 0.0x10^3/uL (0.0-0.7) Basophils # (Auto) 0.0x10^3/uL (0.0-0.2) Sodium Level 140mmol/L (136-145) Potassium Level 4.3mmol/L (3.5-5.1) Chloride Level 104mmol/L (98-107) Carbon Dioxide Level 29mmol/L (21-32) Anion Gap 7 (6-14) Blood Urea Nitrogen 20mg/dL (8-26) Creatinine 1.1mg/dL (0.7-1.3) Estimated GFR (Cockcroft-Gault) 88.0 Glucose Level 129mg/dL (70-99) Calcium Level 9.4mg/dL (8.5-10.1) Microbiology 06/14/16 Anaerobic/Aerobic Culture - Preliminary, Resulted 06/14/16 Anaerobic Culture Result 1 (AMBER) - Preliminary, Resulted 06/14/16 Aerobic Culture - Final, Resulted 06/14/16 Aerobic Culture Result 1 (AMBER) - Final, Resulted 06/14/16 Antimicrobic Susceptibility - Final, Resulted Medications Current Medications Morphine Sulfate 5 mg 5 mg 1X ONCE IV Last administered on 06/13/16 18:34; Start 06/13/16 at 18:15; Stop 06/13/16 at 18:16; Status DC Sodium Chloride 500 ml @ 500 mls/hr 1X ONCE IV Last administered on 18:33; Start 06/13/16 at 18:15; Stop 06/13/16 at 19:14; Status DC Vancomycin HCl 250 ml @ 250 mls/hr 1X ONCE IV Last administered on 06/13/16 18:38; Start 06/13/16 at 18:15; Stop 06/13/16 at 19:14; Status DC Diphtheria/ Tetanus/Acell Pertussis (Boostrix) 0.5 ml ONCE ONCE VAX IM Last administered on 06/13/16 18:48; Start 06/13/16 at 18:30; Stop 06/13/16 at 18:31 ; Status DC Morphine Sulfate 5 mg 1X ONCE IV Last administered on 06/13/16 20:05; Start 06/13/16 at 20:00; Stop 06/13/16 at 20:01; Status DC Morphine Sulfate 4 mg 4 mg PRN Q4HRS PRN IV PAIN Last administered on 13:24; Start 06/13/16 at 20:00; Stop 06/14/16 at 19:59; Status DC Sodium Chloride (Iv Sodium Chloride 0.9% 1000ml Bag) 1,000 ml @ 125 mls/hr Q8H IV Last administered on 06/14/16 05:49; Start 06/13/16 at 20:30; Stop at 13:18; Status DC Vancomycin HCl (Vanco Per Pharmacy) 1 each PRN DAILY PRN MC SEE COMMENTS Last administered on 06/17/16 15:48; Start 06/13/16 at 20:00 Hydromorphone HCl (Dilaudid) 2 mg PRN Q4HRS PRN IV PAIN; Start 06/13/16 at 20: 30; Stop 06/14/16 at 12:55; Status DC Oxycodone/ Acetaminophen (Percocet 10/325) 1 tab PRN Q4HRS PRN PO PAIN Last administered on 06/17/16 08:38; Start 06/13/16 at 20:30; Stop 06/17/16 at 13:08 ; Status DC Acetaminophen (Tylenol) 650 mg PRN Q6HRS PRN PO FEVER Last administered on 06/15 19:55; Start 06/13/16 at 20:30 Ondansetron HCl 4 mg 4 mg PRN Q6HRS PRN IV NAUSEA/VOMITING Last administered on 06/14/16 13:23; Start 06/13/16 at 20:30; Stop 06/16/16 at 12:58; Status DC Vancomycin HCl/ Sodium Chloride (Iv Sodium Chloride 0.9% 250ml) 250 ml @ 250 mls/hr Q12H IV Last administered on 06/15/16 06:17; Start 06/14/16 at 06:00; Stop 06/15/16 at 18:41; Status DC Vancomycin HCl 1 each 1X ONCE MC Last administered on 06/15/16 17:30; Start 06/15/16 at 17:30; Stop 06/15/16 at 17:31; Status DC Hydromorphone HCl (Dilaudid) 2 mg PRN Q1HR PRN IV PAIN; Start 06/14/16 at 13:00 ; Stop 06/15/16 at 17:54; Status DC Ketorolac Tromethamine 30 mg 30 mg 1X ONCE IV Last administered on 06/14/16 13:23; Start 06/14/16 at 13:00; Stop 06/14/16 at 13:01; Status DC Sodium Chloride (Iv Sodium Chloride 0.9% 1000ml Bag) 1,000 ml @ 150 mls/hr Q6H40M IV ; Start 06/14/16 at 13:17; Stop 06/14/16 at 13:23; Status DC Ketorolac Tromethamine (Toradol) 30 mg 1X ONCE IV ; Start 06/14/16 at 13:30; Stop 06/14/16 at 13:31; Status DC Diphenhydramine HCl (Benadryl) 50 mg 1X ONCE IVP Last administered on 13:54; Start 06/14/16 at 13:30; Stop 06/14/16 at 13:31; Status DC Ondansetron HCl (Zofran) 4 mg PRN Q6HRS PRN IV Nausea; Start 06/14/16 at 16:45 ; Stop 06/15/16 at 16:44; Status DC Fentanyl Citrate (Fentanyl 2ml Vial) 25 mcg PRN Q5MIN PRN IV MILD PAIN Last administered on 06/14/16 18:40; Start 06/14/16 at 16:45; Stop 06/15/16 at 16:44 ; Status DC Fentanyl Citrate (Fentanyl 2ml Vial) 50 mcg PRN Q5MIN PRN IV MODERATE PAIN; Start 06/14/16 at 16:45; Stop 06/15/16 at 16:44; Status DC Morphine Sulfate 1 mg 1 mg PRN Q10MIN PRN IV SEVERE PAIN; Start 06/14/16 at 16: 45; Stop 06/15/16 at 16:44; Status DC Lactated Ringer's (Iv Lactated Ringers) 1,000 ml @ 0 mls/hr Q0M IV Last administered on 06/14/16 18:39; Start 06/14/16 at 16:41; Stop 06/15/16 at 04:40 ; Status DC Lidocaine HCl 2 ml 1X PRN PRN ID IV START; Start 06/14/16 at 16:45; Stop at 16:44; Status DC Hydromorphone HCl (Dilaudid) 0.5 mg PRN Q10MIN PRN IV SEV PAIN,Second choice; Start 06/14/16 at 16:45; Stop 06/15/16 at 16:44; Status DC Prochlorperazine Edisylate (Compazine) 5 mg PACU PRN PRN IV NAUSEA; Start 06/14 at 16:45; Stop 06/15/16 at 16:44; Status DC Oxycodone HCl (Roxicodone) 5 mg PRN Q3HRS PRN PO PAIN; Start 06/14/16 at 18:15 ; Stop 06/15/16 at 17:54; Status DC Morphine Sulfate 2 mg PRN Q1HR PRN IV PAIN Last administered on 06/15/16 00:39 ; Start 06/14/16 at 18:15; Stop 06/15/16 at 17:54; Status DC Fentanyl Citrate (Fentanyl 2ml Vial) 25 mcg PRN Q1HR PRN IV PAIN; Start at 18:15; Stop 06/15/16 at 17:54; Status DC Senna/Docusate Sodium (Senna Plus) 1 tab DAILY PO Last administered on 09:07; Start 06/15/16 at 09:00 Polyethylene Glycol (miraLAX PACKET) 17 gm PRN DAILY PRN PO CONSTIPATION Last administered on 06/16/16 08:00; Start 06/14/16 at 18:15 Ondansetron HCl (Zofran) 4 mg PRN Q4HRS PRN IV NAUSEA/VOMITING; Start 06/14/16 at 18:15 Magnesium Hydroxide (Milk Of Magnesia) 2,400 mg 1X PRN PRN PO CONSTIPATION; Start 06/15/16 at 06:00; Stop 06/16/16 at 05:59; Status DC Bisacodyl (Dulcolax Supp) 10 mg 1X PRN PRN ME CONSTIPATION; Start 06/15/16 at 16:00; Stop 06/16/16 at 15:59; Status DC Acetaminophen/ Hydrocodone Bitart (Lortab 7.5/325) 1 tab PRN Q4HRS PRN PO PAIN ; Start 06/14/16 at 18:15; Stop 06/15/16 at 17:54; Status DC Morphine Sulfate 4 mg PRN Q2HR PRN IV PAIN; Start 06/14/16 at 18:15; Stop 06/15 at 17:54; Status DC Acetaminophen/ Hydrocodone Bitart (Lortab 7.5/325) 2 tab PRN Q4HRS PRN PO PAIN ; Start 06/14/16 at 18:15; Stop 06/15/16 at 17:54; Status DC Dextrose 12.5 gm 12.5 gm PRN Q15MIN PRN IV SEE COMMENTS; Start 06/14/16 at 18: 15 Cefazolin Sodium/ Sodium Chloride (Ancef/Iv Sodium Chloride 0.9% 50ml) 50 ml @ 100 mls/hr Q6H IV Last administered on 06/15/16 05:37; Start 06/14/16 at 18:30 ; Stop 06/15/16 at 06:59; Status DC Bupivacaine HCl/ Epinephrine Bitart (Sensorcaine-Epi 0.25%-1:761708 Mpf) 30 ml STK-MED ONCE INJ Last administered on 06/14/16 17:48; Start 06/14/16 at 17:48 ; Stop 06/14/16 at 18:26; Status DC Dexamethasone Sodium Phosphate (Decadron) 20 mg STK-MED ONCE .ROUTE ; Start at 17:01; Stop 06/15/16 at 09:58; Status DC Ondansetron HCl 4 mg 4 mg STK-MED ONCE .ROUTE ; Start 06/14/16 at 17:01; Stop at 09:58; Status DC Propofol (Diprivan) 20 ml @ As Directed STK-MED ONCE IV ; Start 06/14/16 at 17: 01; Stop 06/15/16 at 09:58; Status DC Lidocaine HCl 100 mg STK-MED ONCE .ROUTE ; Start 06/14/16 at 17:01; Stop at 09:58; Status DC Desflurane (Suprane) 15 ml STK-MED ONCE IH ; Start 06/14/16 at 17:01; Stop 06/15 at 09:58; Status DC Fentanyl Citrate (Fentanyl 2ml Vial) 100 mcg STK-MED ONCE .ROUTE ; Start at 17:01; Stop 06/15/16 at 09:58; Status DC Bupivacaine HCl/ Epinephrine Bitart (Sensorcaine-Epi 0.25%-1:088399 Mpf) 30 ml STK-MED ONCE .ROUTE ; Start 06/14/16 at 17:57; Stop 06/15/16 at 09:59; Status DC Lidocaine (Lidoderm) 1 patch DAILY TD Last administered on 06/15/16 14:35; Start 06/15/16 at 13:00; Stop 06/15/16 at 17:54; Status DC Diphenhydramine HCl (Benadryl) 50 mg PRN Q6HRS PRN PO ITCHING Last administered on 06/17/16 12:35; Start 06/15/16 at 15:00 Methylprednisolone (Medrol) 8 mg BID PO Last administered on 06/15/16 20:53; Start 06/15/16 at 09:00; Stop 06/15/16 at 21:01; Status DC Methylprednisolone (Medrol) 4 mg BIDPCLD PO Last administered on 06/15/16 18: 42; Start 06/15/16 at 12:30; Stop 06/15/16 at 17:56; Status DC Methylprednisolone (Medrol) 4 mg TIDPC PO Last administered on 06/16/16 17:44 ; Start 06/16/16 at 08:30; Stop 06/16/16 at 17:31; Status DC Methylprednisolone (Medrol) 8 mg QHS PO Last administered on 06/16/16 20:41; Start 06/16/16 at 21:00; Stop 06/16/16 at 21:01; Status DC Methylprednisolone (Medrol) 4 mg QIDAFTMEAL PO Last administered on 06/17/16 20:46; Start 06/17/16 at 09:00; Stop 06/17/16 at 21:01; Status DC Methylprednisolone (Medrol) 4 mg TID PO Last administered on 06/18/16 09:07; Start 06/18/16 at 09:00; Stop 06/18/16 at 21:01 Methylprednisolone (Medrol) 4 mg BID PO ; Start 06/19/16 at 09:00; Stop at 21:01 Methylprednisolone (Medrol) 4 mg DAILY PO ; Start 06/20/16 at 09:00; Stop at 09:01 Cyclobenzaprine HCl (Flexeril) 10 mg Q6HRS PO Last administered on 06/18/16 00 :16; Start 06/15/16 at 18:00 Pantoprazole Sodium (Protonix) 40 mg DAILYAC PO Last administered on 06/18/16 08:08; Start 06/16/16 at 07:30 Bisacodyl (Dulcolax Tab) 10 mg DAILY PO Last administered on 06/18/16 09:07; Start 06/16/16 at 09:00 Bisacodyl 10 mg 10 mg PRN DAILY PRN ME CONSTIPATION; Start 06/15/16 at 17:45 Vancomycin HCl/ Sodium Chloride (Iv Sodium Chloride 0.9% 250ml) 250 ml @ 250 mls/hr Q8H IV Last administered on 06/18/16 10:30; Start 06/15/16 at 19:00 Vancomycin HCl 1 each 1X ONCE MC Last administered on 06/16/16 18:30; Start 06/16/16 at 18:30; Stop 06/16/16 at 18:31; Status DC Oxycodone/ Acetaminophen (Percocet 10/325) 2 tab PRN Q4HRS PRN PO PAIN Last administered on 06/18/16 06:12; Start 06/17/16 at 13:15 Ketorolac Tromethamine (Toradol) 30 mg Q6HRS IV Last administered on 06/18/16 05:51; Start 06/17/16 at 13:30; Stop 06/19/16 at 06:01 Active Scripts Active Doxycycline Hyclate 100 Mg Capsule 1 Cap PO BID Colace (Docusate Sodium) 100 Mg Capsule 1 Cap PO BID Percocet 5-325 Mg Tablet (Oxycodone/Acetaminophen) 1 Each Tablet 1-2 Tab PO Q4HRS Cyclobenzaprine Hcl 10 Mg Tablet 10 Mg PO Q6HRS Reported No Known Medications Prior To Admisstion (Info) Each 1 Each Vitals/I & O Vital Sign - Last 24 Hours 06/17/16 06/17/16 06/17/16 06/17/16 15:00 16:46 19:00 20:00 Temp 98.1 99.6 98.1 99.6 Pulse 68 65 Resp 18 16 B/P 105/68 145/80 Pulse Ox 96 96 90 O2 Delivery Room Air Room Air Room Air Room Air O2 Flow Rate 8.0 8.0 06/17/16 06/17/16 06/17/16 06/18/16 20:46 23:00 23:00 01:22 Temp 99.6 99.6 99.6 99.6 Pulse 65 65 Resp 18 18 B/P 145/80 145/80 Pulse Ox 90 90 90 90 O2 Delivery Room Air Room Air Room Air Room Air O2 Flow Rate 8.0 8.0 06/18/16 06/18/16 06/18/16 06/18/16 03:00 06:12 07:00 07:12 Temp 99.6 97.9 99.6 97.9 Pulse 94 90 Resp 16 18 B/P 104/65 132/88 Pulse Ox 96 96 97 96 O2 Delivery Room Air Room Air Room Air Room Air O2 Flow Rate 8.0 8.0 06/18/16 08:00 O2 Delivery Room Air Intake and Output 06/17/16 06/17/16 06/18/16 15:00 23:00 07:00 Intake Total 490 ml 1040 ml 250 ml Output Total 400 ml Balance 490 ml 640 ml 250 ml JOSE LOVELACE K III DO Jun 18, 2016 11:38
--- NOTE | 2016-06-18 12:39 | PDOC ---
Infectious Disease Note ROS ROS GEN: Denies fevers, chills, sweats HEENT: Denies blurred vision, sore throat CV: Denies chest pain RESP: Denies shortness of air, cough GI: Denies n/v/d NEURO: Denies confusion, dizziness MSK: Denies weakness, joint pain/swelling Vital Sign Vital Signs Vital Signs Date Time Temp Pulse Resp B/P Pulse Ox O2 Delivery O2 Flow Rate FiO2 06/18/16 11:00 97.7 76 18 115/72 96 Room Air 97.7 06/18/16 07:12 8.0 Physical Exam PHYSICAL EXAM GENERAL: NAD, Alert HEENT: PERRL, OC/OP NECK: Supple, no JVD, no LN LUNGS: Clear HEART: S1S2, no gallop, no murmur ABD: Soft, NT, no organomegaly, no rebound EXT: No edema, no cyanosis ENGLISH TEACHER: Alert, oriented x 3, no focal neurologic deficit SKIN: No rash IV: ok Labs Lab Laboratory Tests Test 06/18/16 05:04 White Blood Count 10.0x10^3/uL (4.0-11.0) Red Blood Count 4.69x10^6/uL (4.30-5.70) Hemoglobin 13.1g/dL (13.0-17.5) Hematocrit 39.4% (39.0-53.0) Mean Corpuscular Volume 84fL (79-100) Mean Corpuscular Hemoglobin 28pg (25-35) Mean Corpuscular Hemoglobin Concent 33g/dL (31-37) Red Cell Distribution Width 12.5% (11.5-14.5) Platelet Count 286x10^3/uL (140-400) Neutrophils (%) (Auto) 70% (31-73) Lymphocytes (%) (Auto) 22% (24-48) Monocytes (%) (Auto) 8% (0-9) Eosinophils (%) (Auto) 0% (0-3) Basophils (%) (Auto) 0% (0-3) Neutrophils # (Auto) 7.0x10^3uL (1.8-7.7) Lymphocytes # (Auto) 2.1x10^3/uL (1.0-4.8) Monocytes # (Auto) 0.8x10^3/uL (0.0-1.1) Eosinophils # (Auto) 0.0x10^3/uL (0.0-0.7) Basophils # (Auto) 0.0x10^3/uL (0.0-0.2) Sodium Level 140mmol/L (136-145) Potassium Level 4.3mmol/L (3.5-5.1) Chloride Level 104mmol/L (98-107) Carbon Dioxide Level 29mmol/L (21-32) Anion Gap 7 (6-14) Blood Urea Nitrogen 20mg/dL (8-26) Creatinine 1.1mg/dL (0.7-1.3) Estimated GFR (Cockcroft-Gault) 88.0 Glucose Level 129mg/dL (70-99) Calcium Level 9.4mg/dL (8.5-10.1) Objective Assessment Right thumb abscess s/p I and D 06/13 MRSA Back pain - on steroids poor dentition Plan Plan of Care Can change to po Doxycycline when ready for discharge Would treat for another 7 days Can f/u in ID office one week after discharge [phone] Thank you Please call with questions # [phone] IGLESIA ENNIS MD Jun 18, 2016 12:39
[2016-06-18] MEDS: VANCOMYCIN PER PHARMACY MC PRN (13:25)
[2016-06-18 15:00] VITALS: BP 123/75
--- NOTE | 2016-06-18 17:53 | PDOC ---
PROGRESS NOTES Subjective Subjective He admits continued low back pain. Objective Objective Vital Signs Date Time Temp Pulse Resp B/P Pulse Ox O2 Delivery O2 Flow Rate FiO2 06/18/16 17:17 18 Room Air 06/18/16 15:00 97.1 88 123/75 97 97.1 06/18/16 07:12 8.0 Intake and Output 06/18/16 07:00 Intake Total 1780 ml Output Total 400 ml Balance 1380 ml Intake Oral 1530 ml IV Total 250 ml Output Urine Total 400 ml # Voids 3 Physical Exam Physical Exam He is sleepy now but has been getting up independently. Assessment Assessment Problems Medical Problems: (1) Felon of finger Status: Acute (2) Tenosynovitis Status: Acute Plan Plan of Shelter when medically stable. Comment Review of Relevant I have reviewed the following items setven (where applicable) has been applied. Labs Laboratory Tests Test 06/16/16 18:25 06/18/16 05:04 Vancomycin Level Trough 12.1mcg/mL (10.0-20.0) Vancomycin Last Dose Date Vancomycin Last Dose Time 1100 White Blood Count 10.0x10^3/uL (4.0-11.0) Red Blood Count 4.69x10^6/uL (4.30-5.70) Hemoglobin 13.1g/dL (13.0-17.5) Hematocrit 39.4% (39.0-53.0) Mean Corpuscular Volume 84fL (79-100) Mean Corpuscular Hemoglobin 28pg (25-35) Mean Corpuscular Hemoglobin Concent 33g/dL (31-37) Red Cell Distribution Width 12.5% (11.5-14.5) Platelet Count 286x10^3/uL (140-400) Neutrophils (%) (Auto) 70% (31-73) Lymphocytes (%) (Auto) 22% (24-48) Monocytes (%) (Auto) 8% (0-9) Eosinophils (%) (Auto) 0% (0-3) Basophils (%) (Auto) 0% (0-3) Neutrophils # (Auto) 7.0x10^3uL (1.8-7.7) Lymphocytes # (Auto) 2.1x10^3/uL (1.0-4.8) Monocytes # (Auto) 0.8x10^3/uL (0.0-1.1) Eosinophils # (Auto) 0.0x10^3/uL (0.0-0.7) Basophils # (Auto) 0.0x10^3/uL (0.0-0.2) Sodium Level 140mmol/L (136-145) Potassium Level 4.3mmol/L (3.5-5.1) Chloride Level 104mmol/L (98-107) Carbon Dioxide Level 29mmol/L (21-32) Anion Gap 7 (6-14) Blood Urea Nitrogen 20mg/dL (8-26) Creatinine 1.1mg/dL (0.7-1.3) Estimated GFR (Cockcroft-Gault) 88.0 Glucose Level 129mg/dL (70-99) Calcium Level 9.4mg/dL (8.5-10.1) Laboratory Tests Test 06/18/16 05:04 White Blood Count 10.0x10^3/uL (4.0-11.0) Red Blood Count 4.69x10^6/uL (4.30-5.70) Hemoglobin 13.1g/dL (13.0-17.5) Hematocrit 39.4% (39.0-53.0) Mean Corpuscular Volume 84fL (79-100) Mean Corpuscular Hemoglobin 28pg (25-35) Mean Corpuscular Hemoglobin Concent 33g/dL (31-37) Red Cell Distribution Width 12.5% (11.5-14.5) Platelet Count 286x10^3/uL (140-400) Neutrophils (%) (Auto) 70% (31-73) Lymphocytes (%) (Auto) 22% (24-48) Monocytes (%) (Auto) 8% (0-9) Eosinophils (%) (Auto) 0% (0-3) Basophils (%) (Auto) 0% (0-3) Neutrophils # (Auto) 7.0x10^3uL (1.8-7.7) Lymphocytes # (Auto) 2.1x10^3/uL (1.0-4.8) Monocytes # (Auto) 0.8x10^3/uL (0.0-1.1) Eosinophils # (Auto) 0.0x10^3/uL (0.0-0.7) Basophils # (Auto) 0.0x10^3/uL (0.0-0.2) Sodium Level 140mmol/L (136-145) Potassium Level 4.3mmol/L (3.5-5.1) Chloride Level 104mmol/L (98-107) Carbon Dioxide Level 29mmol/L (21-32) Anion Gap 7 (6-14) Blood Urea Nitrogen 20mg/dL (8-26) Creatinine 1.1mg/dL (0.7-1.3) Estimated GFR (Cockcroft-Gault) 88.0 Glucose Level 129mg/dL (70-99) Calcium Level 9.4mg/dL (8.5-10.1) Microbiology 06/14/16 Anaerobic/Aerobic Culture - Preliminary, Resulted 06/14/16 Anaerobic Culture Result 1 (AMBER) - Preliminary, Resulted 06/14/16 Aerobic Culture - Final, Resulted 06/14/16 Aerobic Culture Result 1 (AMBER) - Final, Resulted 06/14/16 Antimicrobic Susceptibility - Final, Resulted Medications Current Medications Morphine Sulfate 5 mg 5 mg 1X ONCE IV Last administered on 06/13/16 18:34; Start 06/13/16 at 18:15; Stop 06/13/16 at 18:16; Status DC Sodium Chloride 500 ml @ 500 mls/hr 1X ONCE IV Last administered on 18:33; Start 06/13/16 at 18:15; Stop 06/13/16 at 19:14; Status DC Vancomycin HCl 250 ml @ 250 mls/hr 1X ONCE IV Last administered on 06/13/16 18:38; Start 06/13/16 at 18:15; Stop 06/13/16 at 19:14; Status DC Diphtheria/ Tetanus/Acell Pertussis (Boostrix) 0.5 ml ONCE ONCE VAX IM Last administered on 06/13/16 18:48; Start 06/13/16 at 18:30; Stop 06/13/16 at 18:31 ; Status DC Morphine Sulfate 5 mg 1X ONCE IV Last administered on 06/13/16 20:05; Start 06/13/16 at 20:00; Stop 06/13/16 at 20:01; Status DC Morphine Sulfate 4 mg 4 mg PRN Q4HRS PRN IV PAIN Last administered on 13:24; Start 06/13/16 at 20:00; Stop 06/14/16 at 19:59; Status DC Sodium Chloride (Iv Sodium Chloride 0.9% 1000ml Bag) 1,000 ml @ 125 mls/hr Q8H IV Last administered on 06/14/16 05:49; Start 06/13/16 at 20:30; Stop at 13:18; Status DC Vancomycin HCl (Vanco Per Pharmacy) 1 each PRN DAILY PRN MC SEE COMMENTS Last administered on 06/18/16 13:25; Start 06/13/16 at 20:00 Hydromorphone HCl (Dilaudid) 2 mg PRN Q4HRS PRN IV PAIN; Start 06/13/16 at 20: 30; Stop 06/14/16 at 12:55; Status DC Oxycodone/ Acetaminophen (Percocet 10/325) 1 tab PRN Q4HRS PRN PO PAIN Last administered on 06/17/16 08:38; Start 06/13/16 at 20:30; Stop 06/17/16 at 13:08 ; Status DC Acetaminophen (Tylenol) 650 mg PRN Q6HRS PRN PO FEVER Last administered on 06/15 19:55; Start 06/13/16 at 20:30 Ondansetron HCl 4 mg 4 mg PRN Q6HRS PRN IV NAUSEA/VOMITING Last administered on 06/14/16 13:23; Start 06/13/16 at 20:30; Stop 06/16/16 at 12:58; Status DC Vancomycin HCl/ Sodium Chloride (Iv Sodium Chloride 0.9% 250ml) 250 ml @ 250 mls/hr Q12H IV Last administered on 06/15/16 06:17; Start 06/14/16 at 06:00; Stop 06/15/16 at 18:41; Status DC Vancomycin HCl 1 each 1X ONCE MC Last administered on 06/15/16 17:30; Start 06/15/16 at 17:30; Stop 06/15/16 at 17:31; Status DC Hydromorphone HCl (Dilaudid) 2 mg PRN Q1HR PRN IV PAIN; Start 06/14/16 at 13:00 ; Stop 06/15/16 at 17:54; Status DC Ketorolac Tromethamine 30 mg 30 mg 1X ONCE IV Last administered on 06/14/16 13:23; Start 06/14/16 at 13:00; Stop 06/14/16 at 13:01; Status DC Sodium Chloride (Iv Sodium Chloride 0.9% 1000ml Bag) 1,000 ml @ 150 mls/hr Q6H40M IV ; Start 06/14/16 at 13:17; Stop 06/14/16 at 13:23; Status DC Ketorolac Tromethamine (Toradol) 30 mg 1X ONCE IV ; Start 06/14/16 at 13:30; Stop 06/14/16 at 13:31; Status DC Diphenhydramine HCl (Benadryl) 50 mg 1X ONCE IVP Last administered on 13:54; Start 06/14/16 at 13:30; Stop 06/14/16 at 13:31; Status DC Ondansetron HCl (Zofran) 4 mg PRN Q6HRS PRN IV Nausea; Start 06/14/16 at 16:45 ; Stop 06/15/16 at 16:44; Status DC Fentanyl Citrate (Fentanyl 2ml Vial) 25 mcg PRN Q5MIN PRN IV MILD PAIN Last administered on 06/14/16 18:40; Start 06/14/16 at 16:45; Stop 06/15/16 at 16:44 ; Status DC Fentanyl Citrate (Fentanyl 2ml Vial) 50 mcg PRN Q5MIN PRN IV MODERATE PAIN; Start 06/14/16 at 16:45; Stop 06/15/16 at 16:44; Status DC Morphine Sulfate 1 mg 1 mg PRN Q10MIN PRN IV SEVERE PAIN; Start 06/14/16 at 16: 45; Stop 06/15/16 at 16:44; Status DC Lactated Ringer's (Iv Lactated Ringers) 1,000 ml @ 0 mls/hr Q0M IV Last administered on 06/14/16 18:39; Start 06/14/16 at 16:41; Stop 06/15/16 at 04:40 ; Status DC Lidocaine HCl 2 ml 1X PRN PRN ID IV START; Start 06/14/16 at 16:45; Stop at 16:44; Status DC Hydromorphone HCl (Dilaudid) 0.5 mg PRN Q10MIN PRN IV SEV PAIN,Second choice; Start 06/14/16 at 16:45; Stop 06/15/16 at 16:44; Status DC Prochlorperazine Edisylate (Compazine) 5 mg PACU PRN PRN IV NAUSEA; Start 06/14 at 16:45; Stop 06/15/16 at 16:44; Status DC Oxycodone HCl (Roxicodone) 5 mg PRN Q3HRS PRN PO PAIN; Start 06/14/16 at 18:15 ; Stop 06/15/16 at 17:54; Status DC Morphine Sulfate 2 mg PRN Q1HR PRN IV PAIN Last administered on 06/15/16 00:39 ; Start 06/14/16 at 18:15; Stop 06/15/16 at 17:54; Status DC Fentanyl Citrate (Fentanyl 2ml Vial) 25 mcg PRN Q1HR PRN IV PAIN; Start at 18:15; Stop 06/15/16 at 17:54; Status DC Senna/Docusate Sodium (Senna Plus) 1 tab DAILY PO Last administered on 09:07; Start 06/15/16 at 09:00 Polyethylene Glycol (miraLAX PACKET) 17 gm PRN DAILY PRN PO CONSTIPATION Last administered on 06/16/16 08:00; Start 06/14/16 at 18:15 Ondansetron HCl (Zofran) 4 mg PRN Q4HRS PRN IV NAUSEA/VOMITING; Start 06/14/16 at 18:15 Magnesium Hydroxide (Milk Of Magnesia) 2,400 mg 1X PRN PRN PO CONSTIPATION; Start 06/15/16 at 06:00; Stop 06/16/16 at 05:59; Status DC Bisacodyl (Dulcolax Supp) 10 mg 1X PRN PRN IN CONSTIPATION; Start 06/15/16 at 16:00; Stop 06/16/16 at 15:59; Status DC Acetaminophen/ Hydrocodone Bitart (Lortab 7.5/325) 1 tab PRN Q4HRS PRN PO PAIN ; Start 06/14/16 at 18:15; Stop 06/15/16 at 17:54; Status DC Morphine Sulfate 4 mg PRN Q2HR PRN IV PAIN; Start 06/14/16 at 18:15; Stop 06/15 at 17:54; Status DC Acetaminophen/ Hydrocodone Bitart (Lortab 7.5/325) 2 tab PRN Q4HRS PRN PO PAIN ; Start 06/14/16 at 18:15; Stop 06/15/16 at 17:54; Status DC Dextrose 12.5 gm 12.5 gm PRN Q15MIN PRN IV SEE COMMENTS; Start 06/14/16 at 18: 15 Cefazolin Sodium/ Sodium Chloride (Ancef/Iv Sodium Chloride 0.9% 50ml) 50 ml @ 100 mls/hr Q6H IV Last administered on 06/15/16 05:37; Start 06/14/16 at 18:30 ; Stop 06/15/16 at 06:59; Status DC Bupivacaine HCl/ Epinephrine Bitart (Sensorcaine-Epi 0.25%-1:248775 Mpf) 30 ml STK-MED ONCE INJ Last administered on 06/14/16 17:48; Start 06/14/16 at 17:48 ; Stop 06/14/16 at 18:26; Status DC Dexamethasone Sodium Phosphate (Decadron) 20 mg STK-MED ONCE .ROUTE ; Start at 17:01; Stop 06/15/16 at 09:58; Status DC Ondansetron HCl 4 mg 4 mg STK-MED ONCE .ROUTE ; Start 06/14/16 at 17:01; Stop at 09:58; Status DC Propofol (Diprivan) 20 ml @ As Directed STK-MED ONCE IV ; Start 06/14/16 at 17: 01; Stop 06/15/16 at 09:58; Status DC Lidocaine HCl 100 mg STK-MED ONCE .ROUTE ; Start 06/14/16 at 17:01; Stop at 09:58; Status DC Desflurane (Suprane) 15 ml STK-MED ONCE IH ; Start 06/14/16 at 17:01; Stop 06/15 at 09:58; Status DC Fentanyl Citrate (Fentanyl 2ml Vial) 100 mcg STK-MED ONCE .ROUTE ; Start at 17:01; Stop 06/15/16 at 09:58; Status DC Bupivacaine HCl/ Epinephrine Bitart (Sensorcaine-Epi 0.25%-1:613239 Mpf) 30 ml STK-MED ONCE .ROUTE ; Start 06/14/16 at 17:57; Stop 06/15/16 at 09:59; Status DC Lidocaine (Lidoderm) 1 patch DAILY TD Last administered on 06/15/16 14:35; Start 06/15/16 at 13:00; Stop 06/15/16 at 17:54; Status DC Diphenhydramine HCl (Benadryl) 50 mg PRN Q6HRS PRN PO ITCHING Last administered on 06/17/16 12:35; Start 06/15/16 at 15:00 Methylprednisolone (Medrol) 8 mg BID PO Last administered on 06/15/16 20:53; Start 06/15/16 at 09:00; Stop 06/15/16 at 21:01; Status DC Methylprednisolone (Medrol) 4 mg BIDPCLD PO Last administered on 06/15/16 18: 42; Start 06/15/16 at 12:30; Stop 06/15/16 at 17:56; Status DC Methylprednisolone (Medrol) 4 mg TIDPC PO Last administered on 06/16/16 17:44 ; Start 06/16/16 at 08:30; Stop 06/16/16 at 17:31; Status DC Methylprednisolone (Medrol) 8 mg QHS PO Last administered on 06/16/16 20:41; Start 06/16/16 at 21:00; Stop 06/16/16 at 21:01; Status DC Methylprednisolone (Medrol) 4 mg QIDAFTMEAL PO Last administered on 06/17/16 20:46; Start 06/17/16 at 09:00; Stop 06/17/16 at 21:01; Status DC Methylprednisolone (Medrol) 4 mg TID PO Last administered on 06/18/16 14:25; Start 06/18/16 at 09:00; Stop 06/18/16 at 21:01 Methylprednisolone (Medrol) 4 mg BID PO ; Start 06/19/16 at 09:00; Stop at 21:01 Methylprednisolone (Medrol) 4 mg DAILY PO ; Start 06/20/16 at 09:00; Stop at 09:01 Cyclobenzaprine HCl (Flexeril) 10 mg Q6HRS PO Last administered on 06/18/16 17 :31; Start 06/15/16 at 18:00 Pantoprazole Sodium (Protonix) 40 mg DAILYAC PO Last administered on 06/18/16 08:08; Start 06/16/16 at 07:30 Bisacodyl (Dulcolax Tab) 10 mg DAILY PO Last administered on 06/18/16 09:07; Start 06/16/16 at 09:00 Bisacodyl 10 mg 10 mg PRN DAILY PRN IN CONSTIPATION; Start 06/15/16 at 17:45 Vancomycin HCl/ Sodium Chloride (Iv Sodium Chloride 0.9% 250ml) 250 ml @ 250 mls/hr Q8H IV Last administered on 06/18/16 10:30; Start 06/15/16 at 19:00 Vancomycin HCl 1 each 1X ONCE MC Last administered on 06/16/16 18:30; Start 06/16/16 at 18:30; Stop 06/16/16 at 18:31; Status DC Oxycodone/ Acetaminophen (Percocet 10/325) 2 tab PRN Q4HRS PRN PO PAIN Last administered on 06/18/16 16:17; Start 06/17/16 at 13:15 Ketorolac Tromethamine (Toradol) 30 mg Q6HRS IV Last administered on 06/18/16 17:32; Start 06/17/16 at 13:30; Stop 06/19/16 at 06:01 Active Scripts Active Doxycycline Hyclate 100 Mg Capsule 1 Cap PO BID Colace (Docusate Sodium) 100 Mg Capsule 1 Cap PO BID Percocet 5-325 Mg Tablet (Oxycodone/Acetaminophen) 1 Each Tablet 1-2 Tab PO Q4HRS Cyclobenzaprine Hcl 10 Mg Tablet 10 Mg PO Q6HRS Reported No Known Medications Prior To Admisstion (Info) Each 1 Each Vitals/I & O Vital Sign - Last 24 Hours 06/17/16 06/17/16 06/17/16 06/17/16 19:00 20:00 20:46 23:00 Temp 99.6 99.6 99.6 99.6 Pulse 65 65 Resp 16 18 B/P 145/80 145/80 Pulse Ox 90 90 90 O2 Delivery Room Air Room Air Room Air Room Air O2 Flow Rate 8.0 8.0 06/17/16 06/18/16 06/18/16 06/18/16 23:00 01:22 03:00 06:12 Temp 99.6 99.6 99.6 99.6 Pulse 65 94 Resp 18 16 B/P 145/80 104/65 Pulse Ox 90 90 96 96 O2 Delivery Room Air Room Air Room Air Room Air O2 Flow Rate 8.0 8.0 06/18/16 06/18/16 06/18/16 06/18/16 07:00 07:12 08:00 11:00 Temp 97.9 97.7 97.9 97.7 Pulse 90 76 Resp 18 18 B/P 132/88 115/72 Pulse Ox 97 96 96 O2 Delivery Room Air Room Air Room Air O2 Flow Rate 8.0 06/18/16 06/18/16 06/18/16 15:00 16:17 17:17 Temp 97.1 97.1 Pulse 88 Resp 18 18 B/P 123/75 Pulse Ox 97 O2 Delivery Room Air Room Air Intake and Output 06/17/16 06/17/16 06/18/16 15:00 23:00 07:00 Intake Total 490 ml 1040 ml 250 ml Output Total 400 ml Balance 490 ml 640 ml 250 ml FIDE SINGH MD Jun 18, 2016 17:53
[2016-06-18 19:00] VITALS: BP 131/92
[2016-06-18 23:00] VITALS: BP 130/81
[2016-06-19] MEDS: OXYCODONE/APAP 10/325 TABLET. PO PRN ×4 (03:27→19:47)
[2016-06-19] MEDS: VANCOMYCIN 1 GM in IV NORMAL SALINE 250ML 250 ML IV SCH ×3 (03:28→19:41)
[2016-06-19 03:35] VITALS: BP 120/69
[2016-06-19 05:21] LABS: BASO # 0.1 x10^3/uL (0.0-0.2); BASO % 1 % (0-3); EOS % 1 % (0-3); HEMATOCRIT 38.9 % (39.0-53.0); HEMOGLOBIN 12.8 g/dL (13.0-17.5); LYMPH % 20 % (24-48); MEAN CORPUSCULAR HEMOGLOBIN 28 pg (25-35); MEAN CORPUSCULAR HGB CONC 33 g/dL (31-37); MEAN CORPUSCULAR VOLUME 86 fL (79-100); MONO % 9 % (0-9); NEUT % 70 % (31-73); PLATELET COUNT 278 x10^3/uL (140-400); RED BLOOD COUNT 4.55 x10^6/uL (4.30-5.70); RED CELL DISTRIBUTION WIDTH 12.5 % (11.5-14.5); WHITE BLOOD COUNT 10.2 x10^3/uL (4.0-11.0)
[2016-06-19 05:31] LABS: CALCIUM 8.8 mg/dL (8.5-10.1); CREATININE 1.1 mg/dL (0.7-1.3); POTASSIUM 4.2 mmol/L (3.5-5.1)
[2016-06-19] MEDS: CYCLOBENZAPRINE 10 MG TABLET. PO SCH (06:00)
[2016-06-19] MEDS: KETOROLAC TROMETHAMINE 30 MG/ML SYRINGE. IV SCH (06:01)
[2016-06-19 07:00] VITALS: BP 130/86
[2016-06-19] MEDS: PANTOPRAZOLE 40 MG TABLET. PO SCH (08:55)
[2016-06-19] MEDS: methylPREDNISolone 4 MG TABLET. PO SCH ×2 (08:55→20:48)
[2016-06-19] MEDS: BISACODYL 5 MG TABLET.DR. PO SCH (09:00)
[2016-06-19] MEDS: SENNOSIDES/DOCUSATE 8.6/50MG TABLET. PO SCH (09:00)
--- NOTE | 2016-06-19 09:11 | PDOC ---
PROGRESS NOTES Chief Complaint Chief Complaint R thumb abscess/cellulitis ASSESSMENT AND PLAN: 1. R thumb cellulitis: s/p I&D on 06/[address] Alfaro. on vanco for MRSA in wound culture 2. Pain control: Percocet PRN 3. Pruritus: poss bed bug infestation at "home" (half-way). benadryl PRN 4. Dispo: pt is homeless. will have to finish IV Abx in house Vitals Vitals Vital Signs Date Time Temp Pulse Resp B/P Pulse Ox O2 Delivery O2 Flow Rate FiO2 06/19/16 07:00 98.4 97 18 130/86 94 Room Air 98.4 06/18/16 07:12 8.0 Physical Exam General: Alert, Cooperative, mild distress Heart: Regular rate (at times tachycardic. He reports pain in the thumb.), No murmurs Lungs: Wheezing, Other (Course breath sounds) Abdomen: Soft, No tenderness Extremities: No cyanosis, No edema Skin: Other (puncture wound on the thumb. Purulent discoloration of the thumb tip.) Labs LABS Laboratory Tests Test 06/19/16 04:20 White Blood Count 10.2x10^3/uL (4.0-11.0) Red Blood Count 4.55x10^6/uL (4.30-5.70) Hemoglobin 12.8g/dL (13.0-17.5) Hematocrit 38.9% (39.0-53.0) Mean Corpuscular Volume 86fL (79-100) Mean Corpuscular Hemoglobin 28pg (25-35) Mean Corpuscular Hemoglobin Concent 33g/dL (31-37) Red Cell Distribution Width 12.5% (11.5-14.5) Platelet Count 278x10^3/uL (140-400) Neutrophils (%) (Auto) 70% (31-73) Lymphocytes (%) (Auto) 20% (24-48) Monocytes (%) (Auto) 9% (0-9) Eosinophils (%) (Auto) 1% (0-3) Basophils (%) (Auto) 1% (0-3) Neutrophils # (Auto) 7.2x10^3uL (1.8-7.7) Lymphocytes # (Auto) 2.0x10^3/uL (1.0-4.8) Monocytes # (Auto) 0.9x10^3/uL (0.0-1.1) Eosinophils # (Auto) 0.0x10^3/uL (0.0-0.7) Basophils # (Auto) 0.1x10^3/uL (0.0-0.2) Sodium Level 142mmol/L (136-145) Potassium Level 4.2mmol/L (3.5-5.1) Chloride Level 105mmol/L (98-107) Carbon Dioxide Level 27mmol/L (21-32) Anion Gap 10 (6-14) Blood Urea Nitrogen 21mg/dL (8-26) Creatinine 1.1mg/dL (0.7-1.3) Estimated GFR (Cockcroft-Gault) 88.0 Glucose Level 97mg/dL (70-99) Calcium Level 8.8mg/dL (8.5-10.1) Review of Systems Review of Systems thumb uncomfortable. no other c/o ANNETTE MARTÍNEZ MD Jun 19, 2016 09:11
[2016-06-19 09:32] LABS: PLT ESTIMATE ADEQUATE (ADEQUATE)
[2016-06-19 11:00] VITALS: BP 139/86
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
[2016-06-19] MEDS: VANCOMYCIN PER PHARMACY MC PRN (12:38)
[2016-06-19 19:00] VITALS: BP 142/73
[2016-06-19 23:00] VITALS: BP 135/79
[2016-06-20] MEDS: OXYCODONE/APAP 10/325 TABLET. PO PRN ×4 (02:33→19:30)
[2016-06-20] MEDS: VANCOMYCIN 1 GM in IV NORMAL SALINE 250ML 250 ML IV SCH ×3 (02:34→19:30)
[2016-06-20 03:00] VITALS: BP 137/66
[2016-06-20 05:19] LABS: BASO % 0 % (0-3); EOS % 1 % (0-3); HEMATOCRIT 38.4 % (39.0-53.0); HEMOGLOBIN 12.7 g/dL (13.0-17.5); LYMPH # 1.8 x10^3/uL (1.0-4.8); LYMPH % 18 % (24-48); MEAN CORPUSCULAR HEMOGLOBIN 28 pg (25-35); MEAN CORPUSCULAR HGB CONC 33 g/dL (31-37); MEAN CORPUSCULAR VOLUME 85 fL (79-100); MONO % 9 % (0-9); NEUT % 71 % (31-73); PLATELET COUNT 300 x10^3/uL (140-400); RED CELL DISTRIBUTION WIDTH 12.6 % (11.5-14.5)
[2016-06-20 05:37] LABS: CALCIUM 8.6 mg/dL (8.5-10.1); CREATININE 1.1 mg/dL (0.7-1.3); GFR 87.6; POTASSIUM 4.4 mmol/L (3.5-5.1)
[2016-06-20 07:00] VITALS: BP 139/83
[2016-06-20] MEDS: PANTOPRAZOLE 40 MG TABLET. PO SCH (08:33)
[2016-06-20] MEDS: SENNOSIDES/DOCUSATE 8.6/50MG TABLET. PO SCH (09:00)
[2016-06-20] MEDS: BISACODYL 5 MG TABLET.DR. PO SCH (09:00)
[2016-06-20] MEDS ORDERED: methylPREDNISolone 4 MG TABLET. PO SCH (09:00)
[2016-06-20 11:00] VITALS: BP 128/90
[2016-06-20 15:00] VITALS: BP 148/72
[2016-06-20 19:00] VITALS: BP 112/78
--- NOTE | 2016-06-20 22:54 | PDOC ---
PROGRESS NOTES Chief Complaint Chief Complaint R thumb abscess/cellulitis ASSESSMENT AND PLAN: 1. R thumb cellulitis: s/p I&D on 06/[address] Alfaro. on vanco for MRSA in wound culture. 2. Pain control: Percocet PRN 3. Pruritus: poss bed bug infestation at "home" (retirement). benadryl PRN 4. Dispo: pt is homeless. may have to finish IV Abx in house; if zyvox available by voucher, could go home. SW consult Vitals Vitals Vital Signs Date Time Temp Pulse Resp B/P Pulse Ox O2 Delivery O2 Flow Rate FiO2 06/20/16 20:33 96 Room Air 06/20/16 19:00 98.4 81 20 112/78 98.4 06/20/16 13:43 8.0 Physical Exam General: Alert, Cooperative, mild distress Heart: Regular rate (at times tachycardic. He reports pain in the thumb.), No murmurs Lungs: Wheezing, Other (Course breath sounds) Abdomen: Soft, No tenderness Extremities: No cyanosis, No edema Skin: Other (puncture wound on the thumb. Purulent discoloration of the thumb tip.) Labs LABS Laboratory Tests Test 06/20/16 04:34 06/20/16 04:45 White Blood Count 10.0x10^3/uL (4.0-11.0) Red Blood Count 4.50x10^6/uL (4.30-5.70) Hemoglobin 12.7g/dL (13.0-17.5) Hematocrit 38.4% (39.0-53.0) Mean Corpuscular Volume 85fL (79-100) Mean Corpuscular Hemoglobin 28pg (25-35) Mean Corpuscular Hemoglobin Concent 33g/dL (31-37) Red Cell Distribution Width 12.6% (11.5-14.5) Platelet Count 300x10^3/uL (140-400) Neutrophils (%) (Auto) 71% (31-73) Lymphocytes (%) (Auto) 18% (24-48) Monocytes (%) (Auto) 9% (0-9) Eosinophils (%) (Auto) 1% (0-3) Basophils (%) (Auto) 0% (0-3) Neutrophils # (Auto) 7.1x10^3uL (1.8-7.7) Lymphocytes # (Auto) 1.8x10^3/uL (1.0-4.8) Monocytes # (Auto) 0.8x10^3/uL (0.0-1.1) Eosinophils # (Auto) 0.1x10^3/uL (0.0-0.7) Basophils # (Auto) 0.0x10^3/uL (0.0-0.2) Sodium Level 141mmol/L (136-145) Potassium Level 4.4mmol/L (3.5-5.1) Chloride Level 105mmol/L (98-107) Carbon Dioxide Level 28mmol/L (21-32) Anion Gap 8 (6-14) Blood Urea Nitrogen 18mg/dL (8-26) Creatinine 1.1mg/dL (0.7-1.3) Estimated GFR (Cockcroft-Gault) 87.6 Glucose Level 117mg/dL (70-99) Calcium Level 8.6mg/dL (8.5-10.1) Review of Systems Review of Systems doing well, able to move thumb. Comment Review of Relevant ANNETTE MARTÍNEZ MD Jun 20, 2016 22:54
[2016-06-20 23:00] VITALS: BP 127/77
[2016-06-21] MEDS: OXYCODONE/APAP 5/325 TABLET. PO PRN ×2 (02:02→09:23)
[2016-06-21] MEDS: VANCOMYCIN 1 GM in IV NORMAL SALINE 250ML 250 ML IV SCH ×2 (02:44→11:00)
[2016-06-21 03:15] VITALS: BP 133/83
[2016-06-21] MEDS ORDERED: IBUPROFEN 400 MG TABLET. PO PRN (03:30)
[2016-06-21 06:35] LABS: BASO % 0 % (0-3); EOS % 2 % (0-3); HEMATOCRIT 38.9 % (39.0-53.0); LYMPH # 2.2 x10^3/uL (1.0-4.8); LYMPH % 21 % (24-48); MEAN CORPUSCULAR HEMOGLOBIN 28 pg (25-35); MEAN CORPUSCULAR HGB CONC 34 g/dL (31-37); MEAN CORPUSCULAR VOLUME 84 fL (79-100); MONO % 9 % (0-9); NEUT % 67 % (31-73); PLATELET COUNT 302 x10^3/uL (140-400); RED BLOOD COUNT 4.66 x10^6/uL (4.30-5.70); RED CELL DISTRIBUTION WIDTH 12.8 % (11.5-14.5); WHITE BLOOD COUNT 10.5 x10^3/uL (4.0-11.0)
[2016-06-21 06:50] LABS: CALCIUM 8.8 mg/dL (8.5-10.1); CREATININE 1.1 mg/dL (0.7-1.3); GFR 87.6; POTASSIUM 3.9 mmol/L (3.5-5.1)
[2016-06-21 07:00] VITALS: BP 123/81
[2016-06-21] MEDS: PANTOPRAZOLE 40 MG TABLET. PO SCH (07:30)
[2016-06-21] MEDS: SENNOSIDES/DOCUSATE 8.6/50MG TABLET. PO SCH (09:00)
[2016-06-21] MEDS: BISACODYL 5 MG TABLET.DR. PO SCH (09:00)
--- NOTE | 2016-06-21 09:39 | PDOC ---
PROGRESS NOTES Subjective Subjective He admits continued low back pain. Objective Objective Vital Signs Date Time Temp Pulse Resp B/P Pulse Ox O2 Delivery O2 Flow Rate FiO2 06/21/16 09:23 18 Room Air 06/21/16 07:00 97.9 82 123/81 95 97.9 06/20/16 13:43 8.0 Intake and Output 06/21/16 07:00 Intake Total 2150 ml Output Total 500 ml Balance 1650 ml Intake Oral 1650 ml IV Total 500 ml Output Urine Total 500 ml # Voids 6 Physical Exam Physical Exam He is sitting up in bedside chair and does not seem to be in any acute distress and he continues with painfully limited lumbar spine ROM.He remains independent with his mobility and self care. Assessment Assessment Problems Medical Problems: (1) Felon of finger Status: Acute (2) Tenosynovitis Status: Acute Plan Plan of Shelter when medically stable. Comment Review of Relevant I have reviewed the following items steven (where applicable) has been applied. Labs Laboratory Tests Test 06/20/16 04:34 06/20/16 04:45 06/21/16 05:50 White Blood Count 10.0x10^3/uL (4.0-11.0) 10.5x10^3/uL (4.0-11.0) Red Blood Count 4.50x10^6/uL (4.30-5.70) 4.66x10^6/uL (4.30-5.70) Hemoglobin 12.7g/dL (13.0-17.5) 13.0g/dL (13.0-17.5) Hematocrit 38.4% (39.0-53.0) 38.9% (39.0-53.0) Mean Corpuscular Volume 85fL (79-100) 84fL (79-100) Mean Corpuscular Hemoglobin 28pg (25-35) 28pg (25-35) Mean Corpuscular Hemoglobin Concent 33g/dL (31-37) 34g/dL (31-37) Red Cell Distribution Width 12.6% (11.5-14.5) 12.8% (11.5-14.5) Platelet Count 300x10^3/uL (140-400) 302x10^3/uL (140-400) Neutrophils (%) (Auto) 71% (31-73) 67% (31-73) Lymphocytes (%) (Auto) 18% (24-48) 21% (24-48) Monocytes (%) (Auto) 9% (0-9) 9% (0-9) Eosinophils (%) (Auto) 1% (0-3) 2% (0-3) Basophils (%) (Auto) 0% (0-3) 0% (0-3) Neutrophils # (Auto) 7.1x10^3uL (1.8-7.7) 7.1x10^3uL (1.8-7.7) Lymphocytes # (Auto) 1.8x10^3/uL (1.0-4.8) 2.2x10^3/uL (1.0-4.8) Monocytes # (Auto) 0.8x10^3/uL (0.0-1.1) 0.9x10^3/uL (0.0-1.1) Eosinophils # (Auto) 0.1x10^3/uL (0.0-0.7) 0.2x10^3/uL (0.0-0.7) Basophils # (Auto) 0.0x10^3/uL (0.0-0.2) 0.0x10^3/uL (0.0-0.2) Sodium Level 141mmol/L (136-145) 142mmol/L (136-145) Potassium Level 4.4mmol/L (3.5-5.1) 3.9mmol/L (3.5-5.1) Chloride Level 105mmol/L (98-107) 104mmol/L (98-107) Carbon Dioxide Level 28mmol/L (21-32) 28mmol/L (21-32) Anion Gap 8 (6-14) 10 (6-14) Blood Urea Nitrogen 18mg/dL (8-26) 16mg/dL (8-26) Creatinine 1.1mg/dL (0.7-1.3) 1.1mg/dL (0.7-1.3) Estimated GFR (Cockcroft-Gault) 87.6 87.6 Glucose Level 117mg/dL (70-99) 122mg/dL (70-99) Calcium Level 8.6mg/dL (8.5-10.1) 8.8mg/dL (8.5-10.1) Laboratory Tests Test 06/21/16 05:50 White Blood Count 10.5x10^3/uL (4.0-11.0) Red Blood Count 4.66x10^6/uL (4.30-5.70) Hemoglobin 13.0g/dL (13.0-17.5) Hematocrit 38.9% (39.0-53.0) Mean Corpuscular Volume 84fL (79-100) Mean Corpuscular Hemoglobin 28pg (25-35) Mean Corpuscular Hemoglobin Concent 34g/dL (31-37) Red Cell Distribution Width 12.8% (11.5-14.5) Platelet Count 302x10^3/uL (140-400) Neutrophils (%) (Auto) 67% (31-73) Lymphocytes (%) (Auto) 21% (24-48) Monocytes (%) (Auto) 9% (0-9) Eosinophils (%) (Auto) 2% (0-3) Basophils (%) (Auto) 0% (0-3) Neutrophils # (Auto) 7.1x10^3uL (1.8-7.7) Lymphocytes # (Auto) 2.2x10^3/uL (1.0-4.8) Monocytes # (Auto) 0.9x10^3/uL (0.0-1.1) Eosinophils # (Auto) 0.2x10^3/uL (0.0-0.7) Basophils # (Auto) 0.0x10^3/uL (0.0-0.2) Sodium Level 142mmol/L (136-145) Potassium Level 3.9mmol/L (3.5-5.1) Chloride Level 104mmol/L (98-107) Carbon Dioxide Level 28mmol/L (21-32) Anion Gap 10 (6-14) Blood Urea Nitrogen 16mg/dL (8-26) Creatinine 1.1mg/dL (0.7-1.3) Estimated GFR (Cockcroft-Gault) 87.6 Glucose Level 122mg/dL (70-99) Calcium Level 8.8mg/dL (8.5-10.1) Microbiology 06/14/16 Anaerobic/Aerobic Culture - Preliminary, Resulted 06/14/16 Anaerobic Culture Result 1 (AMBER) - Preliminary, Resulted 06/14/16 Aerobic Culture - Final, Resulted 06/14/16 Aerobic Culture Result 1 (AMBER) - Final, Resulted 06/14/16 Antimicrobic Susceptibility - Final, Resulted Medications Current Medications Morphine Sulfate 5 mg 5 mg 1X ONCE IV Last administered on 06/13/16 18:34; Start 06/13/16 at 18:15; Stop 06/13/16 at 18:16; Status DC Sodium Chloride 500 ml @ 500 mls/hr 1X ONCE IV Last administered on 18:33; Start 06/13/16 at 18:15; Stop 06/13/16 at 19:14; Status DC Vancomycin HCl 250 ml @ 250 mls/hr 1X ONCE IV Last administered on 06/13/16 18:38; Start 06/13/16 at 18:15; Stop 06/13/16 at 19:14; Status DC Diphtheria/ Tetanus/Acell Pertussis (Boostrix) 0.5 ml ONCE ONCE VAX IM Last administered on 06/13/16 18:48; Start 06/13/16 at 18:30; Stop 06/13/16 at 18:31 ; Status DC Morphine Sulfate 5 mg 1X ONCE IV Last administered on 06/13/16 20:05; Start 06/13/16 at 20:00; Stop 06/13/16 at 20:01; Status DC Morphine Sulfate 4 mg 4 mg PRN Q4HRS PRN IV PAIN Last administered on 13:24; Start 06/13/16 at 20:00; Stop 06/14/16 at 19:59; Status DC Sodium Chloride (Iv Sodium Chloride 0.9% 1000ml Bag) 1,000 ml @ 125 mls/hr Q8H IV Last administered on 06/14/16 05:49; Start 06/13/16 at 20:30; Stop at 13:18; Status DC Vancomycin HCl (Vanco Per Pharmacy) 1 each PRN DAILY PRN MC SEE COMMENTS Last administered on 06/19/16 12:38; Start 06/13/16 at 20:00 Hydromorphone HCl (Dilaudid) 2 mg PRN Q4HRS PRN IV PAIN; Start 06/13/16 at 20: 30; Stop 06/14/16 at 12:55; Status DC Oxycodone/ Acetaminophen (Percocet 10/325) 1 tab PRN Q4HRS PRN PO PAIN Last administered on 06/17/16 08:38; Start 06/13/16 at 20:30; Stop 06/17/16 at 13:08 ; Status DC Acetaminophen (Tylenol) 650 mg PRN Q6HRS PRN PO FEVER Last administered on 06/15 19:55; Start 06/13/16 at 20:30 Ondansetron HCl 4 mg 4 mg PRN Q6HRS PRN IV NAUSEA/VOMITING Last administered on 06/14/16 13:23; Start 06/13/16 at 20:30; Stop 06/16/16 at 12:58; Status DC Vancomycin HCl/ Sodium Chloride (Iv Sodium Chloride 0.9% 250ml) 250 ml @ 250 mls/hr Q12H IV Last administered on 06/15/16 06:17; Start 06/14/16 at 06:00; Stop 06/15/16 at 18:41; Status DC Vancomycin HCl 1 each 1X ONCE MC Last administered on 06/15/16 17:30; Start 06/15/16 at 17:30; Stop 06/15/16 at 17:31; Status DC Hydromorphone HCl (Dilaudid) 2 mg PRN Q1HR PRN IV PAIN; Start 06/14/16 at 13:00 ; Stop 06/15/16 at 17:54; Status DC Ketorolac Tromethamine 30 mg 30 mg 1X ONCE IV Last administered on 06/14/16 13:23; Start 06/14/16 at 13:00; Stop 06/14/16 at 13:01; Status DC Sodium Chloride (Iv Sodium Chloride 0.9% 1000ml Bag) 1,000 ml @ 150 mls/hr Q6H40M IV ; Start 06/14/16 at 13:17; Stop 06/14/16 at 13:23; Status DC Ketorolac Tromethamine (Toradol) 30 mg 1X ONCE IV ; Start 06/14/16 at 13:30; Stop 06/14/16 at 13:31; Status DC Diphenhydramine HCl (Benadryl) 50 mg 1X ONCE IVP Last administered on 13:54; Start 06/14/16 at 13:30; Stop 06/14/16 at 13:31; Status DC Ondansetron HCl (Zofran) 4 mg PRN Q6HRS PRN IV Nausea; Start 06/14/16 at 16:45 ; Stop 06/15/16 at 16:44; Status DC Fentanyl Citrate (Fentanyl 2ml Vial) 25 mcg PRN Q5MIN PRN IV MILD PAIN Last administered on 06/14/16 18:40; Start 06/14/16 at 16:45; Stop 06/15/16 at 16:44 ; Status DC Fentanyl Citrate (Fentanyl 2ml Vial) 50 mcg PRN Q5MIN PRN IV MODERATE PAIN; Start 06/14/16 at 16:45; Stop 06/15/16 at 16:44; Status DC Morphine Sulfate 1 mg 1 mg PRN Q10MIN PRN IV SEVERE PAIN; Start 06/14/16 at 16: 45; Stop 06/15/16 at 16:44; Status DC Lactated Ringer's (Iv Lactated Ringers) 1,000 ml @ 0 mls/hr Q0M IV Last administered on 06/14/16 18:39; Start 06/14/16 at 16:41; Stop 06/15/16 at 04:40 ; Status DC Lidocaine HCl 2 ml 1X PRN PRN ID IV START; Start 06/14/16 at 16:45; Stop at 16:44; Status DC Hydromorphone HCl (Dilaudid) 0.5 mg PRN Q10MIN PRN IV SEV PAIN,Second choice; Start 06/14/16 at 16:45; Stop 06/15/16 at 16:44; Status DC Prochlorperazine Edisylate (Compazine) 5 mg PACU PRN PRN IV NAUSEA; Start 06/14 at 16:45; Stop 06/15/16 at 16:44; Status DC Oxycodone HCl (Roxicodone) 5 mg PRN Q3HRS PRN PO PAIN; Start 06/14/16 at 18:15 ; Stop 06/15/16 at 17:54; Status DC Morphine Sulfate 2 mg PRN Q1HR PRN IV PAIN Last administered on 06/15/16 00:39 ; Start 06/14/16 at 18:15; Stop 06/15/16 at 17:54; Status DC Fentanyl Citrate (Fentanyl 2ml Vial) 25 mcg PRN Q1HR PRN IV PAIN; Start at 18:15; Stop 06/15/16 at 17:54; Status DC Senna/Docusate Sodium (Senna Plus) 1 tab DAILY PO Last administered on 09:00; Start 06/15/16 at 09:00 Polyethylene Glycol (miraLAX PACKET) 17 gm PRN DAILY PRN PO CONSTIPATION Last administered on 06/16/16 08:00; Start 06/14/16 at 18:15 Ondansetron HCl (Zofran) 4 mg PRN Q4HRS PRN IV NAUSEA/VOMITING; Start 06/14/16 at 18:15 Magnesium Hydroxide (Milk Of Magnesia) 2,400 mg 1X PRN PRN PO CONSTIPATION; Start 06/15/16 at 06:00; Stop 06/16/16 at 05:59; Status DC Bisacodyl (Dulcolax Supp) 10 mg 1X PRN PRN OR CONSTIPATION; Start 06/15/16 at 16:00; Stop 06/16/16 at 15:59; Status DC Acetaminophen/ Hydrocodone Bitart (Lortab 7.5/325) 1 tab PRN Q4HRS PRN PO PAIN ; Start 06/14/16 at 18:15; Stop 06/15/16 at 17:54; Status DC Morphine Sulfate 4 mg PRN Q2HR PRN IV PAIN; Start 06/14/16 at 18:15; Stop 06/15 at 17:54; Status DC Acetaminophen/ Hydrocodone Bitart (Lortab 7.5/325) 2 tab PRN Q4HRS PRN PO PAIN ; Start 06/14/16 at 18:15; Stop 06/15/16 at 17:54; Status DC Dextrose 12.5 gm 12.5 gm PRN Q15MIN PRN IV SEE COMMENTS; Start 06/14/16 at 18: 15 Cefazolin Sodium/ Sodium Chloride (Ancef/Iv Sodium Chloride 0.9% 50ml) 50 ml @ 100 mls/hr Q6H IV Last administered on 06/15/16 05:37; Start 06/14/16 at 18:30 ; Stop 06/15/16 at 06:59; Status DC Bupivacaine HCl/ Epinephrine Bitart (Sensorcaine-Epi 0.25%-1:114577 Mpf) 30 ml STK-MED ONCE INJ Last administered on 06/14/16 17:48; Start 06/14/16 at 17:48 ; Stop 06/14/16 at 18:26; Status DC Dexamethasone Sodium Phosphate (Decadron) 20 mg STK-MED ONCE .ROUTE ; Start at 17:01; Stop 06/15/16 at 09:58; Status DC Ondansetron HCl 4 mg 4 mg STK-MED ONCE .ROUTE ; Start 06/14/16 at 17:01; Stop at 09:58; Status DC Propofol (Diprivan) 20 ml @ As Directed STK-MED ONCE IV ; Start 06/14/16 at 17: 01; Stop 06/15/16 at 09:58; Status DC Lidocaine HCl 100 mg STK-MED ONCE .ROUTE ; Start 06/14/16 at 17:01; Stop at 09:58; Status DC Desflurane (Suprane) 15 ml STK-MED ONCE IH ; Start 06/14/16 at 17:01; Stop 06/15 at 09:58; Status DC Fentanyl Citrate (Fentanyl 2ml Vial) 100 mcg STK-MED ONCE .ROUTE ; Start at 17:01; Stop 06/15/16 at 09:58; Status DC Bupivacaine HCl/ Epinephrine Bitart (Sensorcaine-Epi 0.25%-1:125600 Mpf) 30 ml STK-MED ONCE .ROUTE ; Start 06/14/16 at 17:57; Stop 06/15/16 at 09:59; Status DC Lidocaine (Lidoderm) 1 patch DAILY TD Last administered on 06/15/16 14:35; Start 06/15/16 at 13:00; Stop 06/15/16 at 17:54; Status DC Diphenhydramine HCl (Benadryl) 50 mg PRN Q6HRS PRN PO ITCHING Last administered on 06/17/16 12:35; Start 06/15/16 at 15:00 Methylprednisolone (Medrol) 8 mg BID PO Last administered on 06/15/16 20:53; Start 06/15/16 at 09:00; Stop 06/15/16 at 21:01; Status DC Methylprednisolone (Medrol) 4 mg BIDPCLD PO Last administered on 06/15/16 18: 42; Start 06/15/16 at 12:30; Stop 06/15/16 at 17:56; Status DC Methylprednisolone (Medrol) 4 mg TIDPC PO Last administered on 06/16/16 17:44 ; Start 06/16/16 at 08:30; Stop 06/16/16 at 17:31; Status DC Methylprednisolone (Medrol) 8 mg QHS PO Last administered on 06/16/16 20:41; Start 06/16/16 at 21:00; Stop 06/16/16 at 21:01; Status DC Methylprednisolone (Medrol) 4 mg QIDAFTMEAL PO Last administered on 06/17/16 20:46; Start 06/17/16 at 09:00; Stop 06/17/16 at 21:01; Status DC Methylprednisolone (Medrol) 4 mg TID PO Last administered on 06/18/16 20:42; Start 06/18/16 at 09:00; Stop 06/18/16 at 21:01; Status DC Methylprednisolone (Medrol) 4 mg BID PO Last administered on 06/19/16 20:48; Start 06/19/16 at 09:00; Stop 06/19/16 at 21:01; Status DC Methylprednisolone (Medrol) 4 mg DAILY PO Last administered on 06/20/16 08:33 ; Start 06/20/16 at 09:00; Stop 06/20/16 at 09:01; Status DC Cyclobenzaprine HCl (Flexeril) 10 mg Q6HRS PO Last administered on 06/19/16 06 :00; Start 06/15/16 at 18:00; Stop 06/19/16 at 09:08; Status DC Pantoprazole Sodium (Protonix) 40 mg DAILYAC PO Last administered on 06/21/16 07:30; Start 06/16/16 at 07:30 Bisacodyl (Dulcolax Tab) 10 mg DAILY PO Last administered on 06/18/16 09:07; Start 06/16/16 at 09:00 Bisacodyl 10 mg 10 mg PRN DAILY PRN OR CONSTIPATION; Start 06/15/16 at 17:45 Vancomycin HCl/ Sodium Chloride (Iv Sodium Chloride 0.9% 250ml) 250 ml @ 250 mls/hr Q8H IV Last administered on 06/21/16 02:44; Start 06/15/16 at 19:00 Vancomycin HCl 1 each 1X ONCE MC Last administered on 06/16/16 18:30; Start 06/16/16 at 18:30; Stop 06/16/16 at 18:31; Status DC Oxycodone/ Acetaminophen (Percocet 10/325) 2 tab PRN Q4HRS PRN PO PAIN Last administered on 06/20/16 19:30; Start 06/17/16 at 13:15; Stop 06/20/16 at 22:54 ; Status DC Ketorolac Tromethamine (Toradol) 30 mg Q6HRS IV Last administered on 06/19/16 06:01; Start 06/17/16 at 13:30; Stop 06/19/16 at 06:01; Status DC Oxycodone/ Acetaminophen (Percocet 5/325) 1 tab PRN Q4HRS PRN PO PAIN Last administered on 06/21/16 09:23; Start 06/20/16 at 23:00 Ibuprofen (Motrin) 400 mg PRN Q6HRS PRN PO INFLAMMATION; Start 06/21/16 at 03: 30 Active Scripts Active Doxycycline Hyclate 100 Mg Capsule 1 Cap PO BID Colace (Docusate Sodium) 100 Mg Capsule 1 Cap PO BID Percocet 5-325 Mg Tablet (Oxycodone/Acetaminophen) 1 Each Tablet 1-2 Tab PO Q4HRS Cyclobenzaprine Hcl 10 Mg Tablet 10 Mg PO Q6HRS Reported No Known Medications Prior To Admisstion (Info) Each 1 Each Vitals/I & O Vital Sign - Last 24 Hours 06/20/16 06/20/16 06/20/16 06/20/16 11:00 13:43 15:00 19:00 Temp 98.0 98.2 98.4 98.0 98.2 98.4 Pulse 80 80 81 Resp 18 24 20 B/P 128/90 148/72 112/78 Pulse Ox 97 97 96 98 O2 Delivery Room Air Room Air Room Air Room Air O2 Flow Rate 8.0 06/20/16 06/20/16 06/20/16 06/20/16 19:30 20:11 20:33 23:00 Temp 97.9 97.9 Pulse 83 Resp 20 B/P 127/77 Pulse Ox 96 96 97 O2 Delivery Room Air Room Air Room Air Room Air 06/21/16 06/21/16 06/21/16 06/21/16 02:02 03:02 03:15 07:00 Temp 97.9 97.9 97.9 97.9 Pulse 78 82 Resp 20 18 B/P 133/83 123/81 Pulse Ox 97 95 95 95 O2 Delivery Room Air Room Air Room Air Room Air 06/21/16 09:23 Resp 18 O2 Delivery Room Air Intake and Output 06/20/16 06/20/16 06/21/16 15:00 23:00 07:00 Intake Total 850 ml 1300 ml Output Total 500 ml Balance 850 ml 800 ml FIDE SINGH MD Jun 21, 2016 09:39
[2016-06-21 10:44] VITALS: BP 116/89
[2016-06-21] MEDS ORDERED: LINE600T PO (12:14)
--- NOTE | 2016-06-21 23:59 | DS ---
DATE OF DISCHARGE: 06/21/2016 DISCHARGE DIAGNOSES: Right thumb cellulitis, status post incision and drainage on 06/15/[address] Alfaro, methicillin-resistant staphylococcus aureus positive wound cultures. BRIEF HOSPITAL COURSE: A 46-year-old male, homeless patient, admitted to the hospital for suspected cellulitis. He was evaluated by Orthopedics and Infectious Disease. The patient had an I and D on 06/14/[address] Alfaro. Initial preop diagnosis was abscess of right thumb. Postoperatively cultures positive for MRSA and he was started on vancomycin and later antibiotics has been changed to Zyvox. The patient was sent home on Zyvox and recommend to follow up with Dr. Paul in 2 weeks. DISCHARGE PHYSICAL EXAMINATION: GENERAL: Alert, oriented x 3. HEART: S1, S2 present. LUNGS: Anterior chest clear. ABDOMEN: Soft, nontender, no organomegaly. EXTREMITIES: No edema. DISCHARGE DISPOSITION: Home. DISCHARGE CONDITION: Stable. FOLLOWUP: With Dr. Rosales and Dr. Alfaro within 2 weeks. DISCHARGE MEDICATIONS: Zyvox 600 mg p.o. b.i.d. New script provided to the patient. Total time spent for discharge 32 minutes for patient education, counseling, and coordination of care. KYAW INTERIANO MD DR: AMANDA/little JOB#: [id number] / [id number] BELKIS
== END 2016-06-21 15:21 | disposition home or self-care (01) | DRG 603 ==
LOC: ER 17:29 → 5 NORTH 19:50
PROVIDERS: ADMIT Internal Medicine; ATTEND Internal Medicine
PROC: 0X9J0ZZ Drainage of Right Hand, Open Approach (ICD-10-PCS; principal; 2016-06-14 17:00)
DX: L03.011 Cellulitis of right finger (principal); L02.511 Cutaneous abscess of right hand; M65.9 Synovitis and tenosynovitis, unspecified; K59.00 Constipation, unspecified; L29.9 Pruritus, unspecified; M54.16 Radiculopathy, lumbar region; G89.29 Other chronic pain; B95.62 Methicillin resistant Staphylococcus aureus infection as the cause of diseases classified elsewhere
CPT/HCPCS: 36415; 72040; 72148; 73140; 80048; 80053; 80202; 85007; 85014; 85018; 85027; 87071; 87075; 87186; 87205; 90471; 90715; 96365; 96375; 96376; G0481; J0690; J1100; J1200; J1885; J2270; J2405; J2704; J3010; J3370; J7030; J7040; J7050; J7120; J7509; Q0163; 97530; 97535; 99285-25

== ENCOUNTER 2017-07-22 18:11 | Emergency (ER) | payer SELFPAY | END 2017-07-22 20:04 | disposition home or self-care (01) | LOC: ER 20:04 | DX: L08.89 Other specified local infections of the skin and subcutaneous tissue (principal); B35.3 Tinea pedis; Z91.041 Radiographic dye allergy status | CPT/HCPCS: 99283 ==